=== PATIENT | male | born 1950 | race African-American/Black ===

== ENCOUNTER 2016-04-11 12:57 | Inpatient (IN) | payer OTHER ==
[~2016-04-11] VITALS: Ht 175.3 cm; Wt 98.1 kg
[~2016-04-11 12:57] MED LIST: ACET-654 PO; ACET65TA; ASPI-85 PO; ASPI81CH PO; ASPI81TA63; BABY81CH; BYDU1INJ SC; CALCCHW12; CITR1SOL PO; DULC10SU2 PR; FISH300C2; GLUC1000; GLYB5TA PO; INSULANT SC; LANTINJ4 SC; LISI-542 PO; LISI5TAB; METF1000 PO; MILKSUS PO; MIRA33504 PO; OXYC10TA56; PERC5TAB8; PERC7.5T8; PERCOCET PO; SIMV20TA2 PO; SITAGLIPTIN; VITA250C; ZINC220T2; [UNRECOGNIZED DRUG - OTHER]
[2016-04-11] MEDS ORDERED: PLAV75TA38 PO (13:58)
[2016-04-11] MEDS ORDERED: ASPI81TA13 PO (13:58)
[2016-04-11] MEDS ORDERED: INSULANT SC (13:58)
[2016-04-11] MEDS ORDERED: VOLT1GEL24 TOP (13:58)
[2016-04-11] MEDS ORDERED: JANU50TA8 PO (13:58)
[2016-04-11] MEDS ORDERED: SIMV20TA2 PO (13:58)
[2016-04-11] MEDS ORDERED: DULC5TAB PO (13:58)
[2016-04-11 14:19] LABS: MEAN CORPUSCULAR HEMOGLOBIN 28.2 pg (27.0-33.0); MEAN CORPUSCULAR HGB CONC 32.3 g/dl (32.0-36.5); MEAN CORPUSCULAR VOLUME 87.3 fl (80.0-96.0); RED CELL DISTRIBUTION WIDTH 14.4 % (11.5-14.5); WHITE BLOOD COUNT 7.2 K/mm3 (4.0-10.0)
[2016-04-11 14:36] LABS: ANION GAP 9 MEQ/L (8-16); BLOOD UREA NITROGEN 18 MG/DL (7-18); CALCIUM LEVEL 8.5 MG/DL (8.8-10.2); CARBON DIOXIDE LEVEL 25 MEQ/L (21-32); CHLORIDE LEVEL 113 MEQ/L (98-107); CREATININE FOR GFR 1.18 MG/DL (0.70-1.30); GLOMERULAR FILTRATION RATE > 60.0 (>49); GLUCOSE, FASTING 133 MG/DL (80-110); POTASSIUM SERUM 4.4 MEQ/L (3.5-5.1); SODIUM LEVEL 147 MEQ/L (136-145)
--- NOTE | 2016-04-11 14:40 | REP ---
PORTABLE CHEST X-RAY: Sitting AP view. HISTORY: TIA. Comparison chest x-ray August 06, 2015. FINDINGS: The lungs are symmetrically aerated and clear. The pleural angles are sharp. Heart is not felt to be enlarged. The aorta is somewhat tortuous. There are degenerative changes in the thoracic spine and in the acromioclavicular joints. Pulmonary vasculature is not increased. IMPRESSION: No active disease. Signed by Simon Peters MD 04/11/2016 03:01 P
[2016-04-11] MEDS ORDERED: ONDANSETRON 4MG/2ML VIAL (J2405) IV PRN (15:00)
[2016-04-11] MEDS ORDERED: DEXTROSE 50% 50 ML SYRINGE IV PRN (15:00)
[2016-04-11] MEDS ORDERED: GLUCOSE 4 GM CHEW TABLET PO PRN (15:00)
[2016-04-11] MEDS ORDERED: MIRALAX *UNIT DOSE* 17GM PACKET PO PRN (15:00)
[2016-04-11] MEDS ORDERED: GLUCAGON FOR INJ 1 MG VIAL (J1610) SC PRN (15:00)
[2016-04-11] MEDS ORDERED: BISACODYL 5 MG TAB PO PRN (15:00)
[2016-04-11 16:06] LABS: ERYTHROCYTE SEDIMENTATION RATE 11 mm/hr (0-20)
[2016-04-11 16:15] LABS: SICKLE CELL SCREEN POSITIVE (NEGATIVE)
--- NOTE | 2016-04-11 16:30 | REP ---
MRA BRAIN WITHOUT CONTRAST: HISTORY: TIA's 3D [id number] MR angiography was performed at the level of the [place]. There is no aneurysm or arteriovenous malformation. Mild atherosclerotic disease involves the horizontal petrous segments and cavernous and supraclinoid internal carotid arteries , A1 segment of the right anterior cerebral artery, left middle cerebral artery trifurcation and basilar artery. The P1 segments of the posterior cerebral arteries are hypoplastic. The major intracranial vessels are patent. The vertebral arteries are equal in size. IMPRESSION: 1. There is no aneurysm or arteriovenous malformation. 2. Atherosclerotic disease as described above. Signed by Mendel Sanchez MD 04/11/2016 04:56 P
--- NOTE | 2016-04-11 16:32 | HPE ---
DATE OF ADMISSION: 04/11/2016 PRIMARY CARE PROVIDER: Dr. Fofana NEUROLOGIST: Dr. Fountain AGILE JAVA DEVELOPER: Dr. Anderson HISTORY OF PRESENT ILLNESS: The patient is a 65-year-old male who was actually seen and admitted here at [facility] on 01/14/2016 through 01/16/2016. At that time, he was diagnosed with amaurosis fugax and did have a fairly thorough workup, including carotid duplex, carotid MRI, MRI of the brain, and transthoracic echocardiogram, which did not reveal any significant etiology for his amaurosis fugax. He was also diagnosed with poorly controlled insulin dependent diabetes. The patient was discharged with close followup with Dr. 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 His symptoms have reportedly been getting worse. He had been following with Dr. Fountain, who did give him a trial of treatment for possible complex migraine, which did not help his symptoms. Dr. Fountain did see the patient today and the patient did have an episode of loss of vision of the left eye yesterday while exerting himself and also this morning for about 10 minutes at approximately 8:30 this morning with a slow resolution of symptoms. He does state that it is happening at increased frequency. As such, Dr. Fountain was concerned for impending CVA and referred the patient to the emergency room for transesophageal echocardiogram and ophthalmology evaluation. SUBJECTIVE: At this time, the patient denies any current symptoms. Denies any chest pain, shortness of breath, lightheadedness, dizziness, nausea, vomiting, or diarrhea. PAST MEDICAL HISTORY: 1. Poorly controlled diabetes. 2. Hypertension. 3. Amaurosis fugax diagnosed within the last several months. 4. Pancreatitis. HOME MEDICATIONS: - aspirin 81 mg daily - Janumet mg twice a day - Lantus 20 units in the morning - Lisinopril 5 mg daily - MiraLAX 17 gram packet daily - Dulcolax 5 mg as needed for constipation - Plavix 75 mg daily ALLERGIES: The patient has no known drug allergies. PAST SURGICAL HISTORY: 1. Cholecystectomy. 2. Knee arthroplasty on the right. SOCIAL HISTORY: The patient is a former smoker. He lives with his . Rarely drinks alcohol. 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 His father on Sunday and he is eager to go and see him, but has not left as he wishes to have this issue resolved first. FAMILY HISTORY: Mother with pancreatic and colon cancer, at age 67. REVIEW OF SYSTEMS: Negative other than history of present illness. PHYSICAL EXAMINATION: VITAL SIGNS: Blood pressure 137/83, pulse 96, respiratory rate 18, temperature 97.3, oxygen saturation 98% on room air. GENERAL: He is a very pleasant, -Prydeinig male, lying on the stretcher at a 30-degree angle. He does not appear to be in any acute distress whatsoever. HEENT: Cranial nerves II through XII grossly intact. He has moist mucous membranes. No elevation in central venous pressure. CARDIOVASCULAR EXAM: S1, S2 regular. RESPIRATORY EXAM: Clear. ABDOMINAL EXAMINATION: Obese. EXTREMITIES: No clubbing, cyanosis or edema. NEUROLOGIC EXAM: Nonfocal. LABORATORY DATA: WBC 7.2, hemoglobin 12.6, hematocrit 38.9, platelet count 189. Chemistry panel: Sodium 147, potassium 4.4, chloride 113, bicarbonate 25, BUN 18, creatinine 1.1. Hemoglobin A1/c is 8.3, which is markedly improved from December where it was 11.5. The patient did have a chest x-ray, which reveals no active disease. ASSESSMENT AND PLAN: This is a 65-year-old man who was sent back to the emergency room for amaurosis fugax. 1. Amaurosis fugax. I did speak with Dr. Fountain of neurology, who suggested obtaining a transesophageal echocardiogram and ophthalmology evaluation. I did speak with Dr. Blanco, who suggested repeating the MRI, MRA and carotid duplex, as well as checking sickle cell screen and complete blood count (CBC). These tests have been ordered. He did assure me that he will see the patient in consultation. I did speak with him twice this afternoon. I have reached out to Dr. Wren to see the patient in consultation from a neurology service, as well as Dr. Justin, who could hopefully complete a transesophageal echocardiogram as early as tomorrow, place the patient nothing by mouth tomorrow morning in case this is an option. For the time being, we will continue with aspirin and Plavix and statin. 2. Hypertension. The patient is on Lisinopril. 3. Insulin-dependent diabetes. We will place the patient on sliding scale and I will hold his Lantus 20 in the morning given that we will be pursuing a transesophageal echocardiogram tomorrow. 4. Constipation. Continue with his home regimen. DISPOSITION: The patient is being admitted to the progressive care unit (PCU) for telemetry monitoring. We will recheck an EKG to ensure that he has not had any paroxysmal atrial fibrillation. He will be admitted to Dr. Bhardwaj's service, who will continue following the patient tomorrow at 7:00 a.m.
--- NOTE | 2016-04-11 16:35 | REP ---
MR BRAIN WITHOUT CONTRAST: HISTORY: TIA's. COMPARISON: 01/15/2016 Areas of increased signal intensity on T2 weighted images are present in the periventricular and subcortical white matter. This represents small vessel ischemic disease. There is no intraparenchymal hemorrhage, infarct, mass or midline shift. The ventricular system and cortical sulci are dilated consistent with mild volume loss. There is no extracerebral collection. Mucosal thickening is present in the sinuses. IMPRESSION:1. Small vessel ischemic disease. 3. Mild volume loss. Signed by Mendel Sanchez MD 04/11/2016 04:57 P
--- NOTE | 2016-04-11 16:59 | REP ---
Duplex carotid sonography: History: TIA. Comparison study is from 01/14/2016. Findings: Antegrade flow is observed in both vertebral arteries. Right carotid: The right common carotid artery shows mild diffuse intimal thickening. There is mild mixed plaquing in the bulb on the right side. Color flow and spectral Doppler interrogation remain unremarkable on the right. Right CCA/PSV 100 cm/S Right ICA/PSV 62 EDV 10 Right ECA/PSV 67 Right ICA/CCA ratio normal 0.6. Impression: 0-15% category narrowing in the right ICA. Doppler velocities have not increased since prior study. Left carotid: The left common carotid artery shows mild diffuse intimal thickening. There is minimal soft plaquing in the left carotid bulb on two-dimensional scanning. Color flow and spectral Doppler interrogation remain unremarkable. Left CCA/PSV 98 cm/S Left ICA/PSV 65 EDV 10 Left ECA/PSV 77 Left ICA/CCA ratio normal 0.7. Impression: 0-15% category narrowing in the left ICA by Doppler velocity criteria. Doppler velocities have not increased significantly since the prior exam. Signed by Simon Peters MD 04/11/2016 05:02 P
[2016-04-11] MEDS: HumaLOG INSULIN (NovoLOG) PER UNIT SC SCH ×2 (17:30→23:02)
[2016-04-11] MEDS ORDERED: HumuLIN R (REGULAR) INSULIN (NovoLIN R) **100U/ML** PER UNIT As Ordered ONE (17:41)
--- NOTE | 2016-04-11 20:27 | ECGEPIP ---
Stationary ECG Study [facility] - ED Test Date: 2016-04-11 Pat Name: SONYA YBARRA Department: Room: - Gender: M [employer]bmethod[employer] Architect: cammy : 1950 Requested By: Sancho Mohan Order Number: [id number] Reading MD: Becky Young Measurements Intervals [place] Rate: 83 P: 63 WV: 160 QRS: 0 QRSD: 90 T: 44 QT: 346 QTc: 408 Interpretive Statements SINUS RHYTHM WITH SINUS ARRHYTHMIA POSSIBLE RIGHT VENTRICULAR CONDUCTION DELAY NSTTW ABNORMALITY SIMILAR 01/15/16 Electronically Signed On 04-11-2016 20:27:34 EST by Becky Young
[2016-04-11] MEDS: HEPARIN SOD (PORCINE) 5000 UNITS/ML VIAL SC SCH (22:10)
[2016-04-11 22:22] VITALS: BP 133/76
[2016-04-11] MEDS ORDERED: HEPARIN SOD (PORCINE) 5000 UNITS/ML VIAL As Ordered ONE (23:42)
[2016-04-12] VITALS (13 sets, daily range): BP systolic 103–136; BP diastolic 52–80
[2016-04-12] MEDS: CEPACOL LOZENGE PO PRN ×3 (00:17→09:00)
[2016-04-12] MEDS: HEPARIN SOD (PORCINE) 5000 UNITS/ML VIAL SC SCH ×4 (00:17→21:14)
[2016-04-12] MEDS ORDERED: HEPARIN SOD (PORCINE) 5000 UNITS/ML VIAL As Ordered ONE (06:28)
[2016-04-12] MEDS: HumaLOG INSULIN (NovoLOG) PER UNIT SC SCH ×5 (07:30→21:15)
[2016-04-12] MEDS ORDERED: glyBURIDE 5 MG TAB PO SCH (07:30)
[2016-04-12 07:39] LABS: MEAN CORPUSCULAR HEMOGLOBIN 29.5 pg (27.0-33.0); MEAN CORPUSCULAR HGB CONC 34.4 g/dl (32.0-36.5); MEAN CORPUSCULAR VOLUME 85.6 fl (80.0-96.0); RED CELL DISTRIBUTION WIDTH 13.3 % (11.5-14.5); WHITE BLOOD COUNT 5.1 K/mm3 (4.0-10.0)
[2016-04-12 08:14] LABS: ANION GAP 7 MEQ/L (8-16); BLOOD UREA NITROGEN 15 MG/DL (7-18); CALCIUM LEVEL 8.5 MG/DL (8.8-10.2); CARBON DIOXIDE LEVEL 24 MEQ/L (21-32); CHLORIDE LEVEL 112 MEQ/L (98-107); GLOMERULAR FILTRATION RATE > 60.0 (>49); GLUCOSE, FASTING 100 MG/DL (80-110); POTASSIUM SERUM 4.2 MEQ/L (3.5-5.1); SODIUM LEVEL 143 MEQ/L (136-145)
[2016-04-12] MEDS ORDERED: LEVEMIR (INSULIN DETEMIR) 1 UNITS/0.01ML SC SCH (09:00)
[2016-04-12] MEDS ORDERED: CLOPIDOGREL 75 MG TAB PO SCH (09:00)
[2016-04-12] MEDS ORDERED: SIMVASTATIN 20 MG TAB PO SCH (09:00)
[2016-04-12] MEDS: LISINOPRIL 5 MG TAB PO SCH (09:00)
[2016-04-12] MEDS ORDERED: ASPIRIN 81 MG ENTERIC TAB PO SCH (09:00)
--- NOTE | 2016-04-12 09:30 | IPNPDOC ---
Assessment/Plan Date Seen The patient was seen on 04/12/16. Problems Problems: (1) Amaurosis fugax of left eye Status: Acute Problem Text: seen by Dr Blanco. continue work up for embolic phenomenon. (2) TIA (transient ischemic attack) Status: Acute Problem Text: MRI and MRA negative awaiting YVON. carotid US no significant obstruction. (3) Diabetes Status: Chronic Problem Text: continue insulin and glyburide when diet is started. (4) Hyperlipidemia Status: Chronic Problem Text: continue statin Plan / VTE VTE Prophylaxis Ordered?: Yes Subjective Review of Systems CC/HPI The patient is a 65-year-old male admitted with a reason for visit of Transient Ischemic Attack. Events since last encounter no new complaints overnight. Objective Physical Examination General Exam: Positive: Alert, No Acute Distress Eye Exam: Positive: Conjunctiva & lids normal, EOMI ENT Exam: Positive: Atraumatic, Mucous membr. moist/pink, Pharynx Normal Neck Exam: Positive: Supple, Negative: JVD, thyromegaly Chest Exam: Positive: Clear to auscultation, Normal air movement Heart Exam: Positive: Normal S1, Normal S2, Rate Normal, Regular Rhythm, Negative: Murmurs, Rubs Telemetry: Positive: No significant arrhythmia Abdomen Exam: Positive: Normal bowel sounds, Soft, Negative: Hepatospenomegaly, Tenderness Extremity Exam: Positive: Normal pulses, Negative: Clubbing, Cyanosis, Edema Vital Signs/I&O Vital Signs Date Time Temp Pulse Resp B/P Pulse Ox O2 Delivery O2 Flow Rate FiO2 04/12/16 09:00 119/79 04/12/16 04:00 97.0 81 16 93 04/12/16 04:00 Room Air I&O- Last 24 Hours up to 6 AM 04/12/16 06:00 Intake Total 0 ml Output Total 0 ml Balance 0 ml Laboratory Data Labs 24H Laboratory Tests 2 04/11/16 14:03: Anion Gap 9, Blood Urea Nitrogen 18, Creatinine 1.18, Sodium Level 147H, Potassium Level 4.4, Chloride Level 113H, Carbon Dioxide Level 25, Calcium Level 8.5L, Estimated Mean Plasma Glucose 192H, Glomerular Filtration Rate > 60.0, Hemoglobin A1c 8.3H 04/11/16 15:15: Erythrocyte Sedimentation Rate 11, Prothromb Time International Ratio 1.00, Prothrombin Time 13.3, Sickle Cell Screen POSITIVE, Thyroid Stimulating Hormone (TSH) 0.676 04/11/16 16:57: Bedside Glucose (Misc Panel) 168H 04/11/16 22:55: Bedside Glucose (Misc Panel) 152H 04/12/16 07:24: Anion Gap 7L, Blood Urea Nitrogen 15, Creatinine 0.90, Sodium Level 143, Potassium Level 4.2, Chloride Level 112H, Carbon Dioxide Level 24, Calcium Level 8.5L, Glomerular Filtration Rate > 60.0 CBC/BMP Laboratory Tests 04/11/16 14:03 Calcium Level 8.5 L, Red Blood Count 4.45, Mean Corpuscular Volume 87.3, Mean Corpuscular Hemoglobin 28.2, Mean Corpuscular Hemoglobin Concent 32.3, Red Cell Distribution Width 14.4 04/12/16 07:24 Calcium Level 8.5 L, Red Blood Count 4.19 L, Mean Corpuscular Volume 85.6, Mean Corpuscular Hemoglobin 29.5, Mean Corpuscular Hemoglobin Concent 34.4, Red Cell Distribution Width 13.3 FSBS Laboratory Tests Test 04/11/16 16:57 04/11/16 22:55 Range/Units Bedside Glucose (Misc Panel) 168 152 80-115 MG/DL SKIP PACK MD Apr 12, 2016 09:30
[2016-04-12] MEDS ORDERED: MIDAZOLAM INJ 2 MG/2 ML VIAL (J2250) As Ordered ONE ×2 (14:33→14:34)
[2016-04-12] MEDS ORDERED: fentaNYL 100 MCG/2 ML INJECTION (J3010) As Ordered ONE (14:34)
[2016-04-12] MEDS ORDERED: LIDOCAINE VISCOUS 2% SOLN 15ML UDC As Ordered ONE (14:35)
[2016-04-12] MEDS ORDERED: MIDAZOLAM INJ 2 MG/2 ML VIAL (J2250) IV ONE (15:05)
[2016-04-12] MEDS ORDERED: fentaNYL 100 MCG/2 ML INJECTION (J3010) IV ONE (15:05)
--- NOTE | 2016-04-12 16:16 | EDDOCDS ---
Nurse's Notes [facility] Name: Sonya Mccann Age: 65 yrs Sex: Male : 1950 Arrival Date: 04/11/2016 Time: 12:57 Bed Admit Hold Private MD: Cass Fountain MD Diagnosis: Amaurosis fugax;Type 2 diabetes mellitus Presentation: 04/11 13:00 Presenting complaint: Patient states: loosing site in left eye since December. Reports kr3 needs test to rule out TIA. Reports multiple episodes of sight loss with multiple admissions for same, most recent mid February. Reports vision normal at this time. Adult Sepsis Screening: The patient does not have new or worsening altered mentation. Patient's respiratory rate is less than 22. Systolic blood pressure is greater than 100. Patient has a qSOFA score of 0- Negative Sepsis Screen. Suicide/Homicide risk assessment- the patient denies having any suicidal and/or homicidal ideations and does not present with any other emotional, behavioral or mental health complaints. 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 Transition of care: patient was received from Dr Odell. 13:00 Method Of Arrival: Walkin/Carried/Asstd kr3 13:00 Acuity: JAQUAN Level 3 kr3 Triage Assessment: 13:06 General: Appears in no apparent distress, comfortable, Behavior is appropriate for age, kr3 cooperative. Pain: Denies pain. HIV screening NA for this visit Offered previously. Neurological: Level of Consciousness is awake, alert, Manager [employer] are equal bilaterally Moves all extremities. Gait is steady, Speech is normal. EENT: Reports intermittent vision disturbance left eye. Respiratory: Respiratory effort is even, unlabored. Derm: Skin is normal. Historical: - Allergies: no known allergies; - Home Meds: 1. aspirin 81 mg Oral tab 1 tab once daily 2. Janumet XR 50-1,000 mg oral tab twice a day 3. Lantus 100 unit/mL Sub-Q soln 20 unit 4. lisinopril 5 mg Oral tab 1 tab once daily 5. Miralax 17 gram/dose Oral powd 17 g once daily 6. Dulcolax (bisacodyl) 5 mg Oral TbEC 1 tab as needed 7. Plavix 75 mg Oral tab 1 tab once daily - PMHx: Diabetes - IDDM: uncontrolled; Pancreatitis; - PSHx: Cholecystectomy; Knee Arthroplasty, Right; Knee surgery- Left; - The history from nurses notes was reviewed: and I agree with what is documented. - Social history: Smoking status: Patient states former smoker of tobacco. No barriers to communication noted, The patient speaks fluent Nigerien. - : The pt / caregiver states he / she is on anticoagulants: Plavix. Home medication list is obtained from the patient. - Exposure Risk Screening:: None identified. - Immunization history:: All immunizations up-to-date. - Family history: Not pertinent. - Social history:: the patient is a non-smoker, the patient does not drink alcohol. Screenin:44 Screening information is obtained from the patient. Fall risk: No risks identified. mlb1 Assistance ADL's: requires no assistance with activities of daily living. Abuse/DV Screen: The patient / caregiver reports he/she is: not in a situation that causes fear, pain or injury. Nutritional screening: No deficits noted. Advance Directives: Currently, there is no health care proxy. home support is adequate. Assessment: 13:37 General: Appears in no apparent distress, comfortable, Behavior is appropriate for age, mlb1 cooperative. Pain: Denies pain. Neurological: Level of Consciousness is awake, alert, Oriented to person, place, time, Moves all extremities. Full function Speech is normal, Facial symmetry appears normal, Facial symmetry: tongue is midline. 14:14 General: Appears in no apparent distress, comfortable, Behavior is appropriate for age, mlb1 cooperative. Pain: Denies pain. 15:11 General: Appears in no apparent distress, comfortable, Behavior is appropriate for age, mlb1 cooperative. Pain: Denies pain. Neurological: No deficits noted. Respiratory: No deficits noted. 17:11 General: Appears in no apparent distress, comfortable, Behavior is appropriate for age, mlb1 cooperative. Pain: Denies pain. Neurological: No deficits noted. Respiratory: No deficits noted. 18:43 General: Appears in no apparent distress, comfortable, Behavior is appropriate for age, mlb1 cooperative. Pain: Denies pain. Neurological: No deficits noted. Respiratory: No deficits noted. 19:03 General: Verbal report given by Trace Cueva RN. Assumed care of patient at this time.. kas2 19:21 General: Appears in no apparent distress, comfortable, well nourished, well groomed, kas2 Behavior is appropriate for age, cooperative. Pain: Denies pain. Neurological: Level of Consciousness is awake, alert, Oriented to person, place, time. Cardiovascular: Capillary refill < 3 seconds Heart tones S1 S2 present Rhythm is sinus rhythm No ectopy. Respiratory: No deficits noted. Airway is patent Respiratory effort is even, unlabored, Respiratory pattern is regular, symmetrical, Breath sounds are clear bilaterally. Derm: Skin is intact, Skin is dry, Skin is pink, warm & dry. Skin temperature is warm. 20:05 General: Patient resting in bed watching TV. Denies pain or discomfort at this time. kas2 Appears comfortable. No apparent distress. Airway patent and respiratory effort even and unlabored. Call jimenez within reach. Will continue to monitor.. 20:35 General: Verbal report given to Bainca Larios RN.. kas2 22:02 General: Patient with complaint of sore throat. "I feel like I am getting a sore throat cf2 from being down in the ER with all these sick people". No abnormalities noted in throat. Spoke with Dr Bingham and he is going to order lozenger for patient. Vital Signs: 12:59 BP 137 / 83; Pulse 96; Resp 18 S; Temp 97.3(O); Pulse Ox 98% on R/A; Weight 85.28 kg dd6 (R); Height 5 ft. 9 in. (175.26 cm) (R); 13:57 BP 118 / 76 (auto/); kas2 13:59 Pulse 94 MON; Pulse Ox 97% ; kas2 13:59 Resp 20; Temp 98.2(O); kas2 14:12 BP 113 / 68 (auto/); kas2 14:12 Pulse 82 MON; Pulse Ox 100% ; kas2 14:27 BP 124 / 75 (auto/); kas2 14:27 Pulse 106 MON; Pulse Ox 100% ; kas2 14:42 BP 125 / 70 (auto/); kas2 14:42 Pulse 102 MON; Pulse Ox 97% ; kas2 14:57 BP 120 / 68 (auto/); kas2 14:57 Pulse 78 MON; Pulse Ox 97% ; kas2 15:12 BP 124 / 77 (auto/); kas2 15:12 Pulse 86 MON; Pulse Ox 96% ; kas2 16:34 BP 116 / 74 (auto/); kas2 16:35 Pulse 98 MON; Pulse Ox 97% ; kas2 16:49 BP 115 / 70 (auto/); kas2 16:49 Pulse 98 MON; Pulse Ox 97% ; kas2 17:04 BP 117 / 72 (auto/); kas2 17:04 Pulse 100 MON; Pulse Ox 98% ; kas2 17:19 BP 108 / 70 (auto/); kas2 17:19 Pulse 98 MON; Pulse Ox 97% ; kas2 17:34 BP 129 / 74 (auto/); kas2 17:34 Pulse 94 MON; kas2 17:49 BP 113 / 77 (auto/); kas2 17:49 Pulse 98 MON; kas2 18:04 BP 152 / 81 (auto/); kas2 18:04 Pulse 100 MON; Pulse Ox 98% ; kas2 18:19 BP 144 / 74 (auto/); kas2 18:19 Pulse 90 MON; Pulse Ox 97% ; kas2 18:49 BP 97 / 55 (auto/); kas2 18:49 Pulse 92 MON; Pulse Ox 96% ; kas2 19:04 BP 125 / 75 (auto/); kas2 19:04 Pulse 100 MON; Pulse Ox 98% ; kas2 19:19 BP 113 / 57 (auto/); kas2 19:19 Pulse 98 MON; Pulse Ox 96% ; kas2 20:45 Resp 20; Temp 98.8; kas2 12:59 Body Mass Index 27.76 (85.28 kg, 175.26 cm) dd6 Vitals: 12:59 Log In Time: April 11, 2016 at 12:57. dd6 ED Course: 12:58 Patient visited by Nba Hooks PCA. dd6 12:58 Patient moved to Waiting dd6 12:59 Cass Fountain is Private Physician. dd6 12:59 Patient moved to Pre RCE dd6 13:04 Triage Initiated kr3 13:25 Patient moved to 11 kr3 13:34 Sancho Lugo MD is Attending Physician. pc 13:38 Patient visited by Ashish Lowery, KENY. mlb1 13:43 Patient visited by Sancho Lugo MD. pc 13:57 EKG done. (by ED staff). Reviewed by Sancho Lugo MD. dem1 13:59 Patient visited by Donovan Johnson. dem1 13:59 monitor and storage bin tender on. Pulse ox on. NIBP on. dem1 14:10 A1C Sent. mb9 14:19 Josh Desai under water assistant. nq 14:39 Patient visited by Donovan Johnson. dem1 14:39 Diet: Patient given regular meal. dem1 14:40 Josh Desai is Hospitalizing Provider. pc 15:01 Chest, 1 View Returned. EDMS 15:11 Patient visited by Ashish Lowery, KENY. mlb1 15:17 Patient moved to Ultrasound br3 15:21 Patient moved to 11 br3 15:24 Patient moved to MRI mlb1 15:36 [facility] Payment Agreement was scanned into [employer] and attached to record. jp5 16:31 Patient moved to Admit Hold tmm1 16:44 MRA BRAIN W/O CONTRAST Returned. EDMS 16:44 MRI Brain without Contrast Returned. EDMS 17:11 Patient visited by Ashish Lowery, KENY. mlb1 17:36 Duplex,carotid (complete) Returned. EDMS 18:44 No IV's were initiated during this patient's visit. No procedures done that require mlb1 assistance. 18:45 Patient visited by Ashish Lowery, KENY. mlb1 19:03 Nallely Vasquez RN is Primary Nurse. kas2 19:04 Patient visited by Edson Verma PCA. kb5 19:04 Patient visited by Nallely Vasquez RN. kas2 19:25 Patient visited by Nallely Vasquez RN. kas2 20:45 Patient visited by Nallely Vasquez RN. kas2 21:05 Patient moved to 15 jmv 21:06 Patient moved to Admit Hold sls1 21:17 EKG-ADULT Returned. EDMS 21:47 Primary Nurse role handed off by Nallely Vasquez RN cf2 21:47 Bianca Moore,KENY is Primary Nurse. cf2 21:47 Patient visited by Bianca Moore RN. cf2 22:02 Patient visited by Bianca Moore,KENY. cf2 22:18 Patient visited by Nallely Vasquez RN. kas2 22:18 Inserted saline lock: 20 gauge in right forearm The patient tolerated the procedure kas2 well. 22:38 Patient visited by Bianca Moore,KENY. cf2 22:39 The patient / caregiver is instructed regarding the plan of care and ED course. Patient cf2 has correct armband on for positive identification. Placed in gown. Bed in low position. Call light in reach. Side rails up X 1. Side rails up X2. Care assumed by holding Nurse. Please see paper chart forms. Report is given to nallely. Property :Personal belongings accompany Pt. Administered Medications: 17:44 Drug: Insulin Regular Human 4 units [insulin regular human 100 unit/mL injection mlb1 solution (0.04 mL)] {Co-Signature: ck1 (Paula Palmer RN).} Route: Sub-Q; Site: left upper arm; Point of Care Testing: Blood Glucose: 16:58 Blood Glucose: 168 mg/dL; mlb1 Ranges: Order Results: Lab Order: CBC; SPEC'M 04/11/16 14:03 Test: WHITE BLOOD COUNT; Value: 7.2; Range: 4.0-10.0; Units: K/mm3; Status: F Test: RED BLOOD COUNT; Value: 4.45; Range: 4.30-6.10; Units: M/mm3; Status: F Test: HEMOGLOBIN; Value: 12.6; Range: 14.0-18.0; Abnormal: Below low normal; Units: g/dl; Status: F Test: HEMATOCRIT; Value: 38.9; Range: 42.0-52.0; Abnormal: Below low normal; Units: %; Status: F Test: MEAN CORPUSCULAR VOLUME; Value: 87.3; Range: 80.0-96.0; Units: fl; Status: F Test: MEAN CORPUSCULAR HEMOGLOBIN; Value: 28.2; Range: 27.0-33.0; Units: pg; Status: F Test: MEAN CORPUSCULAR HGB CONC; Value: 32.3; Range: 32.0-36.5; Units: g/dl; Status: F Test: RED CELL DISTRIBUTION WIDTH; Value: 14.4; Range: 11.5-14.5; Units: %; Status: F Test: PLATELET COUNT, AUTOMATED; Value: 189; Range: 150-450; Units: k/mm3; Status: F Lab Order: MED Profile; SPEC'M 04/11/16 14:03 Test: GLUCOSE, FASTING; Value: 133; Range: 80-110; Abnormal: Above high normal; Units: MG/DL; Status: F Test: BLOOD UREA NITROGEN; Value: 18; Range: 7-18; Units: MG/DL; Status: F Test: CREATININE FOR GFR; Value: 1.18; Range: 0.70-1.30; Units: MG/DL; Status: F Test: GLOMERULAR FILTRATION RATE; Value: > 60.0; Range: >49; Status: F Test: SODIUM LEVEL; Value: 147; Range: 136-145; Abnormal: Above high normal; Units: MEQ/L; Status: F Test: POTASSIUM SERUM; Value: 4.4; Range: 3.5-5.1; Units: MEQ/L; Status: F Test: CHLORIDE LEVEL; Value: 113; Range: 98-107; Abnormal: Above high normal; Units: MEQ/L; Status: F Test: CARBON DIOXIDE LEVEL; Value: 25; Range: 21-32; Units: MEQ/L; Status: F Test: ANION GAP; Value: 9; Range: 8-16; Units: MEQ/L; Status: F Test: CALCIUM LEVEL; Value: 8.5; Range: 8.8-10.2; Abnormal: Below low normal; Units: MG/DL; Status: F Test Note: ; Units are mL/min/1.73 m2 Chronic Kidney Disease Staging per NKF: Stage I & II GFR >=60 Normal to Mildly Decreased Stage III GFR 30-59 Moderately Decreased Stage IV GFR 15-29 Severely Decreased Stage V GFR <15 Very Little GFR Left ESRD GFR <15 on PASSENGER SERVICE SUPERVISOR Lab Order: A1C; SPEC'M 04/11/16 14:03 Test: HEMOGLOBIN A1c; Value: 8.3; Range: 4.5-6.2; Abnormal: Above high normal; Units: %; Status: F Test: ESTIMATED AVERAGE GLUCOSE; Value: 192; Range: 60-110; Abnormal: Above high normal; Units: MG/DL; Status: F Lab Order: PROTHROMBIN TIME PROFILE\\E\\INR; SPEC'M 04/11/16 15:15 Test: PROTHROMBIN TIME; Value: 13.3; Range: 12.3-14.5; Units: SECONDS; Status: F Test: INR; Value: 1.00; Status: F Test Note: ; THERAPUTIC HUMAN INR VALUES INDICATIONS NORMAL RANGES PROPHYLAXIS/TREATMENT OF: VENOUS THROMBOSIS 2.0-3.0 PULMONARY EMBOLISM 2.0-3.0 PREVENTION OF SYSTEMIC EMBOLISM FROM: TISSUE HEART VALVES 2.0-3.0 ACUTE MYOCARDIAL INFARCTION 2.0-3.0 VALVULAR HEART DISEASE 2.0-3.0 ATRIAL FIBRILLATION 2.0-3.0 MECHANICAL VALVES(HIGH RISK) 2.5-3.5 RECURRENT MYOCARDIAL INFARCTION 2.5-3.5 Lab Order: SICKLE CELL SCREEN; [facility] 04/11/16 15:15 Test: SICKLE CELL SCREEN; Value: POSITIVE; Range: NEGATIVE; Status: F Test Note: ; WE SUGGEST ORDERING QUANTITATIVE HEMOGLOBIN ELECTROPHORESIS. Lab Order: ERYTHROCYTE SEDIMENTATION RATE; [facility] 04/11/16 15:15 Test: ERYTHROCYTE SEDIMENTATION RATE; Value: 11; Range: 0-20; Units: mm/hr; Status: F Lab Order: THYROID STIMULATING HORMONE; [facility] 04/11/16 15:15 Test: THYROID STIMULATING HORMONE; Value: 0.676; Range: 0.358-3.740; Units: uIU/ML; Status: F Lab Order: Fingerstick Blood Sugar; [facility] 04/11/16 16:57 Test: BEDSIDE GLUCOSE; Value: 168; Range: 80-115; Abnormal: Above high normal; Units: MG/DL; Status: F Lab Order: BASIC METABOLIC PROFILE; [facility] 04/12/16 07:24 Test: GLUCOSE, FASTING; Value: 100; Range: 80-110; Units: MG/DL; Status: F Test: BLOOD UREA NITROGEN; Value: 15; Range: 7-18; Units: MG/DL; Status: F Test: CREATININE FOR GFR; Value: 0.90; Range: 0.70-1.30; Units: MG/DL; Status: F Test: GLOMERULAR FILTRATION RATE; Value: > 60.0; Range: >49; Status: F Test: SODIUM LEVEL; Value: 143; Range: 136-145; Units: MEQ/L; Status: F Test: POTASSIUM SERUM; Value: 4.2; Range: 3.5-5.1; Units: MEQ/L; Status: F Test: CHLORIDE LEVEL; Value: 112; Range: 98-107; Abnormal: Above high normal; Units: MEQ/L; Status: F Test: CARBON DIOXIDE LEVEL; Value: 24; Range: 21-32; Units: MEQ/L; Status: F Test: ANION GAP; Value: 7; Range: 8-16; Abnormal: Below low normal; Units: MEQ/L; Status: F Test: CALCIUM LEVEL; Value: 8.5; Range: 8.8-10.2; Abnormal: Below low normal; Units: MG/DL; Status: F Test Note: ; Units are mL/min/1.73 m2 Chronic Kidney Disease Staging per NKF: Stage I & II GFR >=60 Normal to Mildly Decreased Stage III GFR 30-59 Moderately Decreased Stage IV GFR 15-29 Severely Decreased Stage V GFR <15 Very Little GFR Left ESRD GFR <15 on PASSENGER SERVICE SUPERVISOR Lab Order: COMPLETE BLOOD COUNT; SPEC'M 04/12/16 07:24 Test: WHITE BLOOD COUNT; Value: 5.1; Range: 4.0-10.0; Units: K/mm3; Status: F Test: RED BLOOD COUNT; Value: 4.19; Range: 4.30-6.10; Abnormal: Below low normal; Units: M/mm3; Status: F Test: HEMOGLOBIN; Value: 12.4; Range: 14.0-18.0; Abnormal: Below low normal; Units: g/dl; Status: F Test: HEMATOCRIT; Value: 35.9; Range: 42.0-52.0; Abnormal: Below low normal; Units: %; Status: F Test: MEAN CORPUSCULAR VOLUME; Value: 85.6; Range: 80.0-96.0; Units: fl; Status: F Test: MEAN CORPUSCULAR HEMOGLOBIN; Value: 29.5; Range: 27.0-33.0; Units: pg; Status: F Test: MEAN CORPUSCULAR HGB CONC; Value: 34.4; Range: 32.0-36.5; Units: g/dl; Status: F Test: RED CELL DISTRIBUTION WIDTH; Value: 13.3; Range: 11.5-14.5; Units: %; Status: F Test: PLATELET COUNT, AUTOMATED; Value: 171; Range: 150-450; Units: k/mm3; Status: F Lab Order: Fingerstick Blood Sugar; SPEC'04/11/16 22:55 Test: BEDSIDE GLUCOSE; Value: 152; Range: 80-115; Abnormal: Above high normal; Units: MG/DL; Status: F Lab Order: Fingerstick Blood Sugar; SPEC'M 04/12/16 11:28 Test: BEDSIDE GLUCOSE; Value: 90; Range: 80-115; Units: MG/DL; Status: F Radiology Order: EKG-ADULT Test: EKG-ADULT REASON FOR EXAMINATION: TIA; Stationary ECG Study; [facility] - ED; ; Test Date: 2016-04-11; Pat Name: SONYA MCCANN Department:; Room: -; Gender: M Administrative And Program Specialist: cammy; : 1950 Requested By: Sancho Mohan; Order Number: [id number] Reading MD: Becky Young; Measurements; Intervals [place]; Rate: 83 P: 63; MA: 160 QRS: 0; QRSD: 90 T: 44; QT: 346; QTc: 408; Interpretive Statements; SINUS RHYTHM WITH SINUS ARRHYTHMIA; POSSIBLE RIGHT VENTRICULAR CONDUCTION DELAY; NSTTW ABNORMALITY; SIMILAR 01/15/16; Electronically Signed On 04-11-2016 20:27:34 EST by Becky Young; Radiology Order: Chest, 1 View Test: Chest, 1 View REASON FOR EXAMINATION: TIA; PORTABLE CHEST X-RAY: Sitting AP view.; ; HISTORY: TIA.; ; Comparison chest x-ray August 06, 2015.; ; FINDINGS: The lungs are symmetrically aerated and clear. The pleural angles are; sharp. Heart is not felt to be enlarged. The aorta is somewhat tortuous. There; are degenerative changes in the thoracic spine and in the acromioclavicular; joints. Pulmonary vasculature is not increased.; ; IMPRESSION: No active disease.; ; ; Signed by; Simon Peters MD 04/11/2016 03:01 P; Radiology Order: MRI Brain without Contrast Test: MRI Brain without Contrast REASON FOR EXAMINATION: tia; MR BRAIN WITHOUT CONTRAST:; ; HISTORY: TIA's.; ; COMPARISON: 01/15/2016; ; Areas of increased signal intensity on T2 weighted images are present in the; periventricular and subcortical white matter. This represents small vessel; ischemic disease. There is no intraparenchymal hemorrhage, infarct, mass or; midline shift. The ventricular system and cortical sulci are dilated consistent; with mild volume loss. There is no extracerebral collection. Mucosal thickening; is present in the sinuses.; ; IMPRESSION:1. Small vessel ischemic disease.; ; 3. Mild volume loss.; ; ; Signed by; Mendel Sanchez MD 04/11/2016 04:57 P; Radiology Order: MRA BRAIN W/O CONTRAST Test: MRA BRAIN W/O CONTRAST REASON FOR EXAMINATION: tia; MRA BRAIN WITHOUT CONTRAST:; ; HISTORY: TIA's; ; 3D [id number] MR angiography was performed at the level of the [place] of; [place].; ; There is no aneurysm or arteriovenous malformation. Mild atherosclerotic disease; involves the horizontal petrous segments and cavernous and supraclinoid internal; carotid arteries , A1 segment of the right anterior cerebral artery, left; middle cerebral artery trifurcation and basilar artery. The P1 segments of the; posterior cerebral arteries are hypoplastic. The major intracranial vessels are; patent. The vertebral arteries are equal in size.; ; IMPRESSION:; ; 1. There is no aneurysm or arteriovenous malformation.; ; 2. Atherosclerotic disease as described above.; ; ; Signed by; Mendel Sanchez MD 04/11/2016 04:56 P; Radiology Order: Duplex,carotid (complete) Test: Duplex,carotid (complete) REASON FOR EXAMINATION: tia; Duplex carotid sonography:; ; History: TIA.; ; Comparison study is from 01/14/2016.; ; Findings: Antegrade flow is observed in both vertebral arteries.; ; Right carotid: The right common carotid artery shows mild diffuse intimal; thickening. There is mild mixed plaquing in the bulb on the right side. Color; flow and spectral Doppler interrogation remain unremarkable on the right.; ; Right CCA/PSV 100 cm/S; ; Right ICA/PSV 62; ; EDV 10; ; Right ECA/PSV 67; ; Right ICA/CCA ratio normal 0.6.; ; Impression:; ; 0-15% category narrowing in the right ICA. Doppler velocities have not increased; since prior study.; ; Left carotid: The left common carotid artery shows mild diffuse intimal; thickening. There is minimal soft plaquing in the left carotid bulb on; two-dimensional scanning. Color flow and spectral Doppler interrogation remain; unremarkable.; ; Left CCA/PSV 98 cm/S; ; Left ICA/PSV 65; ; EDV 10; ; Left ECA/PSV 77; ; Left ICA/CCA ratio normal 0.7.; ; Impression:; ; 0-15% category narrowing in the left ICA by Doppler velocity criteria. Doppler; velocities have not increased significantly since the prior exam.; ; ; Signed by; Simon Peters MD 04/11/2016 05:02 P; Outcome: 14:40 Decision to Hospitalize by Provider. pc 18:44 MRI Study completed. mlb1 22:38 Discharge Assessment: Patient awake, alert and oriented x 3. No cognitive and/or cf2 functional deficits noted. Patient verbalized understanding of disposition instructions. Patient awake and alert. patient administered narcotics - no. The following High Risk Discharge criteria are identified: Yes, Admitted ER admission nurse. Condition: stable. Property :Personal belongings accompany Pt. 04/12 16:14 Patient left the ED. [facility] Signatures: Dispatcher [employer] EDMS Sancho Lugo MD MD pc Jobson, Karen RN KENY j Ashish Lowery RN RN mlb1 Jada Roper,RN RN kr3 Edson Verma, CONDENSER SETTER CONDENSER SETTER kb5 Nba Hooks, CONDENSER SETTER CONDENSER SETTER dd6 Yeni Dawson br3 Natali Ji, RN RN sls1 Donovan Johnson dem1 Josh Desai nq Katie, [place], CONDENSER SETTER CONDENSER SETTER tmm1 Ashish Paz,RN RN mb9 Ev Flores jp5 Nallely VasquezRN RN kas2 Bianca Moore,RN RN cf2 Reji Casper, CONDENSER SETTER CONDENSER SETTER jmv Paula Palmer RN ck1 MTDD
--- NOTE | 2016-04-12 16:16 | EDDOCDS ---
Physician Documentation [facility] Name: Addy Mccann Age: 65 yrs Sex: Male : 1950 Arrival Date: 04/11/2016 Time: 12:57 Bed Admit Hold Private MD: Cass Fountain MD Disposition: 04/11 14:39 Critical Care: Critical care not applicable. pc Disposition: 04/11/16 14:40 Hospitalization ordered by Josh Desai for Inpatient Admission. Preliminary diagnosis are Amaurosis fugax, Type 2 diabetes mellitus. - Bed requested for PCU. - Status is Inpatient Admission. [facility] - Condition is Stable. - Problem is an ongoing problem. - Symptoms are unchanged. HPI: 13:51 This 65 yrs old Male presents to ER via Walkin/Carried/Asstd with pc complaints of Medical Complaint. 13:51 The history is obtained from the patient, Dr. Fountain. He has been having episodes of pc Amaurosis Fugax for 2+ months, occurring between 2-3 times daily to once weekly, lasting 1-15 minutes. He was admitted for the same in late December 2015, with normal MRIs, EKGs and echocardiogram. He was seen by Neurology and started on Plavix in addition to his usual ASA. He was seen in the Neurology office today and was sent for readmission, and Dr. Fountain requested the admitting team order cardiac monitoring and a YVON. The patient himself has no new complaints. Historical: - Allergies: no known allergies; - Home Meds: 1. aspirin 81 mg Oral tab 1 tab once daily 2. Janumet XR 50-1,000 mg oral tab twice a day 3. Lantus 100 unit/mL Sub-Q soln 20 unit 4. lisinopril 5 mg Oral tab 1 tab once daily 5. Miralax 17 gram/dose Oral powd 17 g once daily 6. Dulcolax (bisacodyl) 5 mg Oral TbEC 1 tab as needed 7. Plavix 75 mg Oral tab 1 tab once daily - PMHx: Diabetes - IDDM: uncontrolled; Pancreatitis; - PSHx: Cholecystectomy; Knee Arthroplasty, Right; Knee surgery- Left; - The history from nurses notes was reviewed: and I agree with what is documented. - Social history: Smoking status: Patient states former smoker of tobacco. No barriers to communication noted, The patient speaks fluent Brazilian. - : The pt / caregiver states he / she is on anticoagulants: Plavix. Home medication list is obtained from the patient. - Exposure Risk Screening:: None identified. - Immunization history:: All immunizations up-to-date. - Family history: Not pertinent. - Social history:: the patient is a non-smoker, the patient does not drink alcohol. ROS: 13:51 All systems are negative except as listed. pc Exam: 13:51 General Appearance: no acute distress, alert. pc 13:51 EENT: normal eye inspection, ears, nose and throat normal, pharynx normal, mucous membranes moist 13:51 Neck: 13:51 Respiratory: no respiratory distress, normal breath sounds, chest non-tender. 13:51 CVS: regular pulse rate, regular rhythm, normal S1 and S2, no murmurs, strong peripheral pulses, normal capillary refill. 13:51 Abdomen: soft, non-tender, no organomegaly, normal bowel sounds. 13:51 Back: 13:51 Skin: skin color is normal, warm, dry. 13:51 Extremities: The extremities have a grossly normal appearance, are non-tender, without acute ROM abnormalities. 13:51 Neuro: oriented x 3, cranial nerves normal as tested, no motor deficits, no sensory deficits, normal gait. 13:51 Psych: normal mood. Vital Signs: 12:59 BP 137 / 83; Pulse 96; Resp 18 S; Temp 97.3(O); Pulse Ox 98% on R/A; Weight 85.28 kg / dd6 188.01 lbs (R); Height 5 ft. 9 in. (175.26 cm) (R); 13:57 BP 118 / 76 (auto/); kas2 13:59 Pulse 94 MON; Pulse Ox 97% ; kas2 13:59 Resp 20; Temp 98.2(O); kas2 14:12 BP 113 / 68 (auto/); kas2 14:12 Pulse 82 MON; Pulse Ox 100% ; kas2 14:27 BP 124 / 75 (auto/); kas2 14:27 Pulse 106 MON; Pulse Ox 100% ; kas2 14:42 BP 125 / 70 (auto/); kas2 14:42 Pulse 102 MON; Pulse Ox 97% ; kas2 14:57 BP 120 / 68 (auto/); kas2 14:57 Pulse 78 MON; Pulse Ox 97% ; kas2 15:12 BP 124 / 77 (auto/); kas2 15:12 Pulse 86 MON; Pulse Ox 96% ; kas2 16:34 BP 116 / 74 (auto/); kas2 16:35 Pulse 98 MON; Pulse Ox 97% ; kas2 16:49 BP 115 / 70 (auto/); kas2 16:49 Pulse 98 MON; Pulse Ox 97% ; kas2 17:04 BP 117 / 72 (auto/); kas2 17:04 Pulse 100 MON; Pulse Ox 98% ; kas2 17:19 BP 108 / 70 (auto/); kas2 17:19 Pulse 98 MON; Pulse Ox 97% ; kas2 17:34 BP 129 / 74 (auto/); kas2 17:34 Pulse 94 MON; kas2 17:49 BP 113 / 77 (auto/); kas2 17:49 Pulse 98 MON; kas2 18:04 BP 152 / 81 (auto/); kas2 18:04 Pulse 100 MON; Pulse Ox 98% ; kas2 18:19 BP 144 / 74 (auto/); kas2 18:19 Pulse 90 MON; Pulse Ox 97% ; kas2 18:49 BP 97 / 55 (auto/); kas2 18:49 Pulse 92 MON; Pulse Ox 96% ; kas2 19:04 BP 125 / 75 (auto/); kas2 19:04 Pulse 100 MON; Pulse Ox 98% ; kas2 19:19 BP 113 / 57 (auto/); kas2 19:19 Pulse 98 MON; Pulse Ox 96% ; kas2 20:45 Resp 20; Temp 98.8; kas2 12:59 Body Mass Index 27.76 (85.28 kg, 175.26 cm) dd6 MDM: 13:29 BED REQUEST+ADM ordered. EDMS 13:43 Metal Miner/Pulse Ox/q 30 min VS ordered. pc 13:43 CBC Ordered. EDMS 13:43 MED Profile Ordered. EDMS 13:44 ECG WITH READING ER PHYS+CARDIAG ordered. EDMS 13:45 A1C Ordered. EDMS 13:45 Chest, 1 View Ordered. EDMS 13:49 CONSISTENT CARBOHYDRATE+DIET ordered. EDMS 13:51 Differential Diagnosis: recurrent Amaurosis Fugax left eye; poorly controlled DM. Plan: pc d/w Dr. Desai re: pre-admission tests required. 13:51 Physician consultation: Dr. Josh Desai regarding patient's condition, and he pc requests the tests as ordered and will discuss with Dr. Fountain regarding need for MRIs. 14:00 Test interpretation: EKG. pc 14:38 CBC Reviewed. pc 14:38 A1C Reviewed. pc 14:39 MED Profile Reviewed. pc 14:39 Data reviewed: old medical records, vital signs, nurses notes, EKG(s), lab test pc results, all radiology studies and available results. Test interpretation: LAB - all labs as ordered have been reviewed, interpreted and considered in the overall management of the clinical presentation; X-RAY - interpreted by Radiologist and personally reviewed, 1 view chest no acute disease. The patient has been re-examined and re-evaluated. The clinical presentation did not require any ED treatment or interventions. Disposition: The historical points, examination findings, and any diagnostic results supporting the provided diagnosis, were discussed with the patient or legal guardian. The need for further work-up and/or treatment in the hospital was explained. 14:49 TRANSESPHOGEAL ECHO/DOPPLER/CF ordered. EDMS 15:00 Admission / Observation Status ordered. EDMS 15:01 CONSISTENT CARBOHYDRATES ordered. EDMS 15:01 PROTHROMBIN TIME PROFILE\E\INR Ordered. EDMS 15:01 SICKLE CELL SCREEN Ordered. EDMS 15:01 ERYTHROCYTE SEDIMENTATION RATE Ordered. EDMS 15:01 THYROID STIMULATING HORMONE Ordered. EDMS 15:04 NPO FOR TEST/PROCEDURE ordered. EDMS 15:10 MRI Brain without Contrast Ordered. EDMS 15:10 MRA BRAIN W/O CONTRAST Ordered. EDMS 15:10 Duplex,carotid (complete) Ordered. EDMS 15:36 [facility] Payment Agreement was scanned into [employer] and attached to record. jp5 15:37 Financial registration complete. jp5 17:37 Insulin Regular Human 4 units Sub-Q once ordered. mlb1 19:33 BASIC METABOLIC PROFILE Ordered. EDMS 19:33 COMPLETE BLOOD COUNT Ordered. EDMS 23:05 Fingerstick Blood Sugar Ordered. EDMS 04/12 11:37 Fingerstick Blood Sugar Ordered. EDMS EC/24 14:00 Rate is 83 beats/min. Rhythm is regular, Normal Sinus Rhythm. QRS [place] is Normal. [place] pc interval is normal. QRS interval is normal. QT interval is normal. No Q waves. T waves are Normal. No ST changes noted. Clinical impression: Normal Sinus Rhythm and Incomplete RBBB. Point of Care Testing: Blood Glucose: 16:58 Blood Glucose: 168 mg/dL; mlb1 Ranges: Administered Medications: 17:44 Drug: Insulin Regular Human 4 units [insulin regular human 100 unit/mL injection mlb1 solution (0.04 mL)] {Co-Signature: ck1 (Paula Palmer RN).} Route: Sub-Q; Site: left upper arm; Signatures: Dispatcher [employer] EDMS Sancho Lugo MD MD pc Jobson, Karen, RN RN Ashish Petit RN RN mlb1 Jada Roper,RN RN Ev Martinez jp5 Paula Palmer RN ck1 The chart was reviewed and I authenticate all verbal orders and agree with the evaluation and treatment provided.Corrections: (The following items were deleted from the chart) 04/12 07:05 04/11 15:01 ELECTROCARDIOGRAM ADULT ordered. EDWV EDWV Attachments: 15:36 [facility] Payment Agreement jp5 MTDD
[2016-04-12] MEDS ORDERED: D5W 1,000 ML IV ONE (17:45)
--- NOTE | 2016-04-12 18:52 | RO ---
DATE OF PROCEDURE: 04/12/2016 REFERRING PHYSICIAN: Dr. Laura Bhardwaj INDICATION: Cerebrovascular accident/transient ischemic accident (TIA). PROCEDURE: Transesophageal echocardiogram. ANESTHESIA: Conscious sedation. POSTPROCEDURE DIAGNOSES: Essentially normal transesophageal echocardiogram. BRIEF HISTORY: Mr. Mccann is a 65-year-old male who comes with recurrent amaurosis fugax. Because no obvious etiology was established I was asked to perform transesophageal echocardiogram to evaluate for potential cardiac source of emboli. I discussed the nature of the procedure and its possible complications with the patient the night before and then again in the morning of the procedure. Appropriate consent was obtained. PROCEDURE NOTE: Procedure was performed in endoscopy suite. The patient presented in fasting condition. His posterior pharynx was anesthetized using viscous lidocaine and Cetacaine spray. Subsequently he was sedated with total 4 mg of intravenous (IV) Versed and 50 mcg is of IV fentanyl. When appropriate level of sedation was accomplished, probe was introduced into initially esophagus and then stomach without difficulty. After appropriate images were obtained it was withdrawn. The patient tolerated the procedure well and there were no immediate complications. FINDINGS: Both atria appear grossly normal for his age. His left atrial appendage is a relatively small and is free of thrombus and there is normal flow. Flow in both right and left-sided pulmonary veins is normal. Atrial septum is intact based on two-dimensional, color Doppler imaging as well as after injection of agitated saline. There was no evidence for [id number]-ptyi and whzj-eq-ywrgl shunt. Left ventricle is of normal systolic function. Same applies for right ventricle. Aortic, mitral, tricuspid and pulmonic valves were all well seen and appear normal. By Doppler imaging there is no aortic stenosis or insufficiency. There is trace mitral and trace tricuspid insufficiency. Calculated pulmonary artery pressure is within normal limits. Aortic root and visualized part of aortic arch and descending aorta have minimal atherosclerosis. CONCLUSIONS: 1. Normal left ventricle (LV) systolic function. 2. No significant valvular disease. 3. Intact atrial septum. 4. No significant thoracic aortic atherosclerosis. 5. Left atrial appendage is relatively small and free of thrombus. COMMENT: Subacute bacterial endocarditis (SBE) prophylaxis is not indicated. The study did not reveal any evidence for cardiac source of emboli. Preliminary results of the study were communicated to Dr. Bhardwaj. JD
[2016-04-13 02:00] VITALS: BP 115/70
[2016-04-13] MEDS: HEPARIN SOD (PORCINE) 5000 UNITS/ML VIAL SC SCH (05:21)
[2016-04-13 06:00] VITALS: BP 112/73
[2016-04-13 06:30] LABS: MEAN CORPUSCULAR HEMOGLOBIN 29.3 pg (27.0-33.0); MEAN CORPUSCULAR HGB CONC 32.6 g/dl (32.0-36.5); MEAN CORPUSCULAR VOLUME 89.8 fl (80.0-96.0); RED CELL DISTRIBUTION WIDTH 13.9 % (11.5-14.5); WHITE BLOOD COUNT 5.6 K/mm3 (4.0-10.0)
[2016-04-13 06:36] LABS: ANION GAP 8 MEQ/L (8-16); BLOOD UREA NITROGEN 15 MG/DL (7-18); CALCIUM LEVEL 8.2 MG/DL (8.8-10.2); CARBON DIOXIDE LEVEL 24 MEQ/L (21-32); CHLORIDE LEVEL 109 MEQ/L (98-107); CREATININE FOR GFR 0.92 MG/DL (0.70-1.30); GLOMERULAR FILTRATION RATE > 60.0 (>49); GLUCOSE, FASTING 208 MG/DL (80-110); POTASSIUM SERUM 4.2 MEQ/L (3.5-5.1); SODIUM LEVEL 141 MEQ/L (136-145)
[2016-04-13] MEDS: LISINOPRIL 5 MG TAB PO SCH (08:39)
[2016-04-13] MEDS: HumaLOG INSULIN (NovoLOG) PER UNIT SC SCH (08:39)
[2016-04-13 10:00] VITALS: BP 152/69
--- NOTE | 2016-04-13 22:16 | DSES ---
DATE OF ADMISSION: 04/11/2016 DATE OF DISCHARGE: 04/13/2016 FOX RAISER: Dr. Justin NEUROLOGIST: Dr. Fountain PRIMARY CARE PROVIDER: Dr. Stack DRAFTER CIVIL (CAD): Dr. Anderson, covered by Dr. Blanco FINAL DIAGNOSES: 1. Amaurosis fugax of the left eye. 2. Transient ischemic attack. 3. Insulin-dependent diabetes. 4. Dyslipidemia. HISTORY OF PRESENT ILLNESS: This is a 65-year-old male patient with underlying medical history of poorly controlled diabetes, insulin dependent, hypertension, amaurosis fugax, diagnosed at least several months ago, history of pancreatitis, hypertension. Patient previously had MRI of the brain and transthoracic echocardiogram, which did not show anything significant. Was diagnosed with poorly controlled diabetes and placed on insulin. Patient was discharged previously after diagnosis of amaurosis fugax to followup with Dr. Fountain and seen by choir director. Patient reported symptoms have worsened, presenting itself two to three times a week, lasting a couple minutes. Dr. Fountain has been following and treating for possible complex migraine, which did not help his symptoms. Subsequently Dr. Fountain has sent the patient in for further diagnosis and workup and for transesophageal echocardiogram and ophthalmology evaluation. HOSPITAL COURSE: Patient was admitted to the hospital. Ultrasound of carotid was done. MRI/MRA of the brain were done, which wee all negative. Dr. Justin was called for transesophageal echocardiogram, which was negative. Neurologic check was done. Dr. Blanco has seen the patient as well. Insulin was provided. Deep vein thrombosis (DVT) prophylaxis was provided. Patient was placed on aspirin and Plavix. Patient had no further episode during hospital course. Case discussed with Dr. Fountain given patient had negative symptoms. Dr. Fountain agreed that the patient can be discharged for further followup. Dr. Fountain will consider referring the patient to [facility] for further workup and care. Patient currently tolerating oral, back to baseline. Able to ambulate with no acute distress. VITAL SIGNS: Temperature 97.4, pulse 88, respirations 18, blood pressure 152/69, pulse oximetry 98% on room air. LABORATORY DATA: WBC 5.6 hemoglobin and hematocrit 12.3/37.7, platelets 168. Chemistry: Sodium 141, potassium 4.2, chloride 109, bicarbonate 24, BUN 15, creatinine 0.92. DISCHARGE MEDICATIONS: - aspirin 81 mg p daily - Dulcolax rectal suppository 5 mg daily - Plavix 75 mg by mouth daily - glyburide 5 mg by mouth daily - Lantus insulin 20 units subcutaneous daily - lisinopril 5 mg by mouth daily - MiraLax 17 grams by mouth daily as needed - Zocor 20 mg by mouth daily - Janumet 51,000 mg tablets one by mouth twice a day - Voltaren 1% gel topical as needed for pain DISCHARGE INSTRUCTIONS: Patient is instructed to followup with Dr. Fountain and also patient's choir director, Dr. Anderson, for further care. Followup with primary care provider for management of blood pressure and diabetes. Followup with Dr. Fountain for possible referral to [facility] for further workup. Return to the hospital if symptoms worsen.
--- NOTE | 2016-04-14 17:15 | EDDOCDS ---
Physician Documentation [facility] Name: Addy Mccann Age: 65 yrs Sex: Male : 1950 Arrival Date: 04/11/2016 Time: 12:57 Bed Admit Hold Private MD: Cass Fountain MD Disposition: 04/11 14:39 Critical Care: Critical care not applicable. pc Disposition: 04/11/16 14:40 Hospitalization ordered by Josh Desai for Inpatient Admission. Preliminary diagnosis are Amaurosis fugax, Type 2 diabetes mellitus. - Bed requested for PCU. - Status is Inpatient Admission. [facility] - Condition is Stable. - Problem is an ongoing problem. - Symptoms are unchanged. HPI: 13:51 This 65 yrs old Male presents to ER via Walkin/Carried/Asstd with pc complaints of Medical Complaint. 13:51 The history is obtained from the patient, Dr. Fountain. He has been having episodes of pc Amaurosis Fugax for 2+ months, occurring between 2-3 times daily to once weekly, lasting 1-15 minutes. He was admitted for the same in late December 2015, with normal MRIs, EKGs and echocardiogram. He was seen by Neurology and started on Plavix in addition to his usual ASA. He was seen in the Neurology office today and was sent for readmission, and Dr. Fountain requested the admitting team order cardiac monitoring and a YVON. The patient himself has no new complaints. Historical: - Allergies: no known allergies; - Home Meds: 1. aspirin 81 mg Oral tab 1 tab once daily 2. Janumet XR 50-1,000 mg oral tab twice a day 3. Lantus 100 unit/mL Sub-Q soln 20 unit 4. lisinopril 5 mg Oral tab 1 tab once daily 5. Miralax 17 gram/dose Oral powd 17 g once daily 6. Dulcolax (bisacodyl) 5 mg Oral TbEC 1 tab as needed 7. Plavix 75 mg Oral tab 1 tab once daily - PMHx: Diabetes - IDDM: uncontrolled; Pancreatitis; - PSHx: Cholecystectomy; Knee Arthroplasty, Right; Knee surgery- Left; - The history from nurses notes was reviewed: and I agree with what is documented. - Social history: Smoking status: Patient states former smoker of tobacco. No barriers to communication noted, The patient speaks fluent Taiwanese. - : The pt / caregiver states he / she is on anticoagulants: Plavix. Home medication list is obtained from the patient. - Exposure Risk Screening:: None identified. - Immunization history:: All immunizations up-to-date. - Family history: Not pertinent. - Social history:: the patient is a non-smoker, the patient does not drink alcohol. ROS: 13:51 All systems are negative except as listed. pc Exam: 13:51 General Appearance: no acute distress, alert. pc 13:51 EENT: normal eye inspection, ears, nose and throat normal, pharynx normal, mucous membranes moist 13:51 Neck: 13:51 Respiratory: no respiratory distress, normal breath sounds, chest non-tender. 13:51 CVS: regular pulse rate, regular rhythm, normal S1 and S2, no murmurs, strong peripheral pulses, normal capillary refill. 13:51 Abdomen: soft, non-tender, no organomegaly, normal bowel sounds. 13:51 Back: 13:51 Skin: skin color is normal, warm, dry. 13:51 Extremities: The extremities have a grossly normal appearance, are non-tender, without acute ROM abnormalities. 13:51 Neuro: oriented x 3, cranial nerves normal as tested, no motor deficits, no sensory deficits, normal gait. 13:51 Psych: normal mood. Vital Signs: 12:59 BP 137 / 83; Pulse 96; Resp 18 S; Temp 97.3(O); Pulse Ox 98% on R/A; Weight 85.28 kg / dd6 188.01 lbs (R); Height 5 ft. 9 in. (175.26 cm) (R); 13:57 BP 118 / 76 (auto/); kas2 13:59 Pulse 94 MON; Pulse Ox 97% ; kas2 13:59 Resp 20; Temp 98.2(O); kas2 14:12 BP 113 / 68 (auto/); kas2 14:12 Pulse 82 MON; Pulse Ox 100% ; kas2 14:27 BP 124 / 75 (auto/); kas2 14:27 Pulse 106 MON; Pulse Ox 100% ; kas2 14:42 BP 125 / 70 (auto/); kas2 14:42 Pulse 102 MON; Pulse Ox 97% ; kas2 14:57 BP 120 / 68 (auto/); kas2 14:57 Pulse 78 MON; Pulse Ox 97% ; kas2 15:12 BP 124 / 77 (auto/); kas2 15:12 Pulse 86 MON; Pulse Ox 96% ; kas2 16:34 BP 116 / 74 (auto/); kas2 16:35 Pulse 98 MON; Pulse Ox 97% ; kas2 16:49 BP 115 / 70 (auto/); kas2 16:49 Pulse 98 MON; Pulse Ox 97% ; kas2 17:04 BP 117 / 72 (auto/); kas2 17:04 Pulse 100 MON; Pulse Ox 98% ; kas2 17:19 BP 108 / 70 (auto/); kas2 17:19 Pulse 98 MON; Pulse Ox 97% ; kas2 17:34 BP 129 / 74 (auto/); kas2 17:34 Pulse 94 MON; kas2 17:49 BP 113 / 77 (auto/); kas2 17:49 Pulse 98 MON; kas2 18:04 BP 152 / 81 (auto/); kas2 18:04 Pulse 100 MON; Pulse Ox 98% ; kas2 18:19 BP 144 / 74 (auto/); kas2 18:19 Pulse 90 MON; Pulse Ox 97% ; kas2 18:49 BP 97 / 55 (auto/); kas2 18:49 Pulse 92 MON; Pulse Ox 96% ; kas2 19:04 BP 125 / 75 (auto/); kas2 19:04 Pulse 100 MON; Pulse Ox 98% ; kas2 19:19 BP 113 / 57 (auto/); kas2 19:19 Pulse 98 MON; Pulse Ox 96% ; kas2 20:45 Resp 20; Temp 98.8; kas2 12:59 Body Mass Index 27.76 (85.28 kg, 175.26 cm) dd6 MDM: 13:29 BED REQUEST+ADM ordered. EDMS 13:43 Nitric Acid Concentrator Operator/Pulse Ox/q 30 min VS ordered. pc 13:43 CBC Ordered. EDMS 13:43 MED Profile Ordered. EDMS 13:44 ECG WITH READING ER PHYS+CARDIAG ordered. EDMS 13:45 A1C Ordered. EDMS 13:45 Chest, 1 View Ordered. EDMS 13:49 CONSISTENT CARBOHYDRATE+DIET ordered. EDMS 13:51 Differential Diagnosis: recurrent Amaurosis Fugax left eye; poorly controlled DM. Plan: pc d/w Dr. Desai re: pre-admission tests required. 13:51 Physician consultation: Dr. Josh Desai regarding patient's condition, and he pc requests the tests as ordered and will discuss with Dr. Fountain regarding need for MRIs. 14:00 Test interpretation: EKG. pc 14:38 CBC Reviewed. pc 14:38 A1C Reviewed. pc 14:39 MED Profile Reviewed. pc 14:39 Data reviewed: old medical records, vital signs, nurses notes, EKG(s), lab test pc results, all radiology studies and available results. Test interpretation: LAB - all labs as ordered have been reviewed, interpreted and considered in the overall management of the clinical presentation; X-RAY - interpreted by Radiologist and personally reviewed, 1 view chest no acute disease. The patient has been re-examined and re-evaluated. The clinical presentation did not require any ED treatment or interventions. Disposition: The historical points, examination findings, and any diagnostic results supporting the provided diagnosis, were discussed with the patient or legal guardian. The need for further work-up and/or treatment in the hospital was explained. 14:49 TRANSESPHOGEAL ECHO/DOPPLER/CF ordered. EDMS 15:00 Admission / Observation Status ordered. EDMS 15:01 CONSISTENT CARBOHYDRATES ordered. EDMS 15:01 PROTHROMBIN TIME PROFILE\E\INR Ordered. EDMS 15:01 SICKLE CELL SCREEN Ordered. EDMS 15:01 ERYTHROCYTE SEDIMENTATION RATE Ordered. EDMS 15:01 THYROID STIMULATING HORMONE Ordered. EDMS 15:04 NPO FOR TEST/PROCEDURE ordered. EDMS 15:10 MRI Brain without Contrast Ordered. EDMS 15:10 MRA BRAIN W/O CONTRAST Ordered. EDMS 15:10 Duplex,carotid (complete) Ordered. EDMS 15:36 [facility] Payment Agreement was scanned into [employer] and attached to record. jp5 15:37 Financial registration complete. jp5 17:37 Insulin Regular Human 4 units Sub-Q once ordered. mlb1 19:33 BASIC METABOLIC PROFILE Ordered. EDMS 19:33 COMPLETE BLOOD COUNT Ordered. EDMS 23:05 Fingerstick Blood Sugar Ordered. EDMS 04/12 11:37 Fingerstick Blood Sugar Ordered. EDMS EC/24 14:00 Rate is 83 beats/min. Rhythm is regular, Normal Sinus Rhythm. QRS [place] is Normal. [place] pc interval is normal. QRS interval is normal. QT interval is normal. No Q waves. T waves are Normal. No ST changes noted. Clinical impression: Normal Sinus Rhythm and Incomplete RBBB. Point of Care Testing: Blood Glucose: 16:58 Blood Glucose: 168 mg/dL; mlb1 Ranges: Administered Medications: 17:44 Drug: Insulin Regular Human 4 units [insulin regular human 100 unit/mL injection mlb1 solution (0.04 mL)] {Co-Signature: ck1 (Paula Palmer RN).} Route: Sub-Q; Site: left upper arm; Signatures: Dispatcher [employer] EDMS Sancho Lugo MD MD pc Jobson, Karen, RN RN Ashish Petit RN RN mlb1 Jada Roper,RN RN Ev Martinez jp5 Paula Palmer RN ck1 The chart was reviewed and I authenticate all verbal orders and agree with the evaluation and treatment provided.Corrections: (The following items were deleted from the chart) 04/12 07:05 04/11 15:01 ELECTROCARDIOGRAM ADULT ordered. EDVT EDVT Attachments: 15:36 [facility] Payment Agreement jp5 Chart Complete MTDD
--- NOTE | 2016-04-14 17:15 | EDDOCDS ---
Nurse's Notes [facility] Name: Sonya Mccann Age: 65 yrs Sex: Male : 1950 Arrival Date: 04/11/2016 Time: 12:57 Bed Admit Hold Private MD: Cass Fountain MD Diagnosis: Amaurosis fugax;Type 2 diabetes mellitus Presentation: 04/11 13:00 Presenting complaint: Patient states: loosing site in left eye since December. Reports kr3 needs test to rule out TIA. Reports multiple episodes of sight loss with multiple admissions for same, most recent mid February. Reports vision normal at this time. Adult Sepsis Screening: The patient does not have new or worsening altered mentation. Patient's respiratory rate is less than 22. Systolic blood pressure is greater than 100. Patient has a qSOFA score of 0- Negative Sepsis Screen. Suicide/Homicide risk assessment- the patient denies having any suicidal and/or homicidal ideations and does not present with any other emotional, behavioral or mental health complaints. Status: Patient is not a care services manager or dependent. Transition of care: patient was received from Dr Odell. 13:00 Method Of Arrival: Walkin/Carried/Asstd kr3 13:00 Acuity: JAQUAN Level 3 kr3 Triage Assessment: 13:06 General: Appears in no apparent distress, comfortable, Behavior is appropriate for age, kr3 cooperative. Pain: Denies pain. HIV screening NA for this visit Offered previously. Neurological: Level of Consciousness is awake, alert, Kiln Operator are equal bilaterally Moves all extremities. Gait is steady, Speech is normal. EENT: Reports intermittent vision disturbance left eye. Respiratory: Respiratory effort is even, unlabored. Derm: Skin is normal. Historical: - Allergies: no known allergies; - Home Meds: 1. aspirin 81 mg Oral tab 1 tab once daily 2. Janumet XR 50-1,000 mg oral tab twice a day 3. Lantus 100 unit/mL Sub-Q soln 20 unit 4. lisinopril 5 mg Oral tab 1 tab once daily 5. Miralax 17 gram/dose Oral powd 17 g once daily 6. Dulcolax (bisacodyl) 5 mg Oral TbEC 1 tab as needed 7. Plavix 75 mg Oral tab 1 tab once daily - PMHx: Diabetes - IDDM: uncontrolled; Pancreatitis; - PSHx: Cholecystectomy; Knee Arthroplasty, Right; Knee surgery- Left; - The history from nurses notes was reviewed: and I agree with what is documented. - Social history: Smoking status: Patient states former smoker of tobacco. No barriers to communication noted, The patient speaks fluent Taiwanese. - : The pt / caregiver states he / she is on anticoagulants: Plavix. Home medication list is obtained from the patient. - Exposure Risk Screening:: None identified. - Immunization history:: All immunizations up-to-date. - Family history: Not pertinent. - Social history:: the patient is a non-smoker, the patient does not drink alcohol. Screenin:44 Screening information is obtained from the patient. Fall risk: No risks identified. mlb1 Assistance ADL's: requires no assistance with activities of daily living. Abuse/DV Screen: The patient / caregiver reports he/she is: not in a situation that causes fear, pain or injury. Nutritional screening: No deficits noted. Advance Directives: Currently, there is no health care proxy. home support is adequate. Assessment: 13:37 General: Appears in no apparent distress, comfortable, Behavior is appropriate for age, mlb1 cooperative. Pain: Denies pain. Neurological: Level of Consciousness is awake, alert, Oriented to person, place, time, Moves all extremities. Full function Speech is normal, Facial symmetry appears normal, Facial symmetry: tongue is midline. 14:14 General: Appears in no apparent distress, comfortable, Behavior is appropriate for age, mlb1 cooperative. Pain: Denies pain. 15:11 General: Appears in no apparent distress, comfortable, Behavior is appropriate for age, mlb1 cooperative. Pain: Denies pain. Neurological: No deficits noted. Respiratory: No deficits noted. 17:11 General: Appears in no apparent distress, comfortable, Behavior is appropriate for age, mlb1 cooperative. Pain: Denies pain. Neurological: No deficits noted. Respiratory: No deficits noted. 18:43 General: Appears in no apparent distress, comfortable, Behavior is appropriate for age, mlb1 cooperative. Pain: Denies pain. Neurological: No deficits noted. Respiratory: No deficits noted. 19:03 General: Verbal report given by Trace Cueva RN. Assumed care of patient at this time.. kas2 19:21 General: Appears in no apparent distress, comfortable, well nourished, well groomed, kas2 Behavior is appropriate for age, cooperative. Pain: Denies pain. Neurological: Level of Consciousness is awake, alert, Oriented to person, place, time. Cardiovascular: Capillary refill < 3 seconds Heart tones S1 S2 present Rhythm is sinus rhythm No ectopy. Respiratory: No deficits noted. Airway is patent Respiratory effort is even, unlabored, Respiratory pattern is regular, symmetrical, Breath sounds are clear bilaterally. Derm: Skin is intact, Skin is dry, Skin is pink, warm & dry. Skin temperature is warm. 20:05 General: Patient resting in bed watching TV. Denies pain or discomfort at this time. kas2 Appears comfortable. No apparent distress. Airway patent and respiratory effort even and unlabored. Call jimenez within reach. Will continue to monitor.. 20:35 General: Verbal report given to Bianca Larios RN.. kas2 22:02 General: Patient with complaint of sore throat. "I feel like I am getting a sore throat cf2 from being down in the ER with all these sick people". No abnormalities noted in throat. Spoke with Dr Bingham and he is going to order lozenger for patient. Vital Signs: 12:59 BP 137 / 83; Pulse 96; Resp 18 S; Temp 97.3(O); Pulse Ox 98% on R/A; Weight 85.28 kg dd6 (R); Height 5 ft. 9 in. (175.26 cm) (R); 13:57 BP 118 / 76 (auto/); kas2 13:59 Pulse 94 MON; Pulse Ox 97% ; kas2 13:59 Resp 20; Temp 98.2(O); kas2 14:12 BP 113 / 68 (auto/); kas2 14:12 Pulse 82 MON; Pulse Ox 100% ; kas2 14:27 BP 124 / 75 (auto/); kas2 14:27 Pulse 106 MON; Pulse Ox 100% ; kas2 14:42 BP 125 / 70 (auto/); kas2 14:42 Pulse 102 MON; Pulse Ox 97% ; kas2 14:57 BP 120 / 68 (auto/); kas2 14:57 Pulse 78 MON; Pulse Ox 97% ; kas2 15:12 BP 124 / 77 (auto/); kas2 15:12 Pulse 86 MON; Pulse Ox 96% ; kas2 16:34 BP 116 / 74 (auto/); kas2 16:35 Pulse 98 MON; Pulse Ox 97% ; kas2 16:49 BP 115 / 70 (auto/); kas2 16:49 Pulse 98 MON; Pulse Ox 97% ; kas2 17:04 BP 117 / 72 (auto/); kas2 17:04 Pulse 100 MON; Pulse Ox 98% ; kas2 17:19 BP 108 / 70 (auto/); kas2 17:19 Pulse 98 MON; Pulse Ox 97% ; kas2 17:34 BP 129 / 74 (auto/); kas2 17:34 Pulse 94 MON; kas2 17:49 BP 113 / 77 (auto/); kas2 17:49 Pulse 98 MON; kas2 18:04 BP 152 / 81 (auto/); kas2 18:04 Pulse 100 MON; Pulse Ox 98% ; kas2 18:19 BP 144 / 74 (auto/); kas2 18:19 Pulse 90 MON; Pulse Ox 97% ; kas2 18:49 BP 97 / 55 (auto/); kas2 18:49 Pulse 92 MON; Pulse Ox 96% ; kas2 19:04 BP 125 / 75 (auto/); kas2 19:04 Pulse 100 MON; Pulse Ox 98% ; kas2 19:19 BP 113 / 57 (auto/); kas2 19:19 Pulse 98 MON; Pulse Ox 96% ; kas2 20:45 Resp 20; Temp 98.8; kas2 12:59 Body Mass Index 27.76 (85.28 kg, 175.26 cm) dd6 Vitals: 12:59 Log In Time: April 11, 2016 at 12:57. dd6 ED Course: 12:58 Patient visited by Nba Hooks PCA. dd6 12:58 Patient moved to Waiting dd6 12:59 Cass Fountain is Private Physician. dd6 12:59 Patient moved to Pre RCE dd6 13:04 Triage Initiated kr3 13:25 Patient moved to 11 kr3 13:34 Sancho Lugo MD is Attending Physician. pc 13:38 Patient visited by Ashish Lowery, KENY. mlb1 13:43 Patient visited by Sancho Lugo MD. pc 13:57 EKG done. (by ED staff). Reviewed by Sancho Lugo MD. dem1 13:59 Patient visited by Donovan Johnson. dem1 13:59 youth nutritional monitor on. Pulse ox on. NIBP on. dem1 14:10 A1C Sent. mb9 14:19 Josh Desai range ecologist. nq 14:39 Patient visited by Donovan Johnson. dem1 14:39 Diet: Patient given regular meal. dem1 14:40 Josh Desai is Hospitalizing Provider. pc 15:01 Chest, 1 View Returned. EDMS 15:11 Patient visited by Ashish Lowery, KENY. mlb1 15:17 Patient moved to Ultrasound br3 15:21 Patient moved to 11 br3 15:24 Patient moved to MRI mlb1 15:36 [facility] Payment Agreement was scanned into [employer] and attached to record. jp5 16:31 Patient moved to Admit Hold tmm1 16:44 MRA BRAIN W/O CONTRAST Returned. EDMS 16:44 MRI Brain without Contrast Returned. EDMS 17:11 Patient visited by Ashish Lowery, KENY. mlb1 17:36 Duplex,carotid (complete) Returned. EDMS 18:44 No IV's were initiated during this patient's visit. No procedures done that require mlb1 assistance. 18:45 Patient visited by Ashish Lowery, KENY. mlb1 19:03 Nallely Vasquez RN is Primary Nurse. kas2 19:04 Patient visited by Edson Verma PCA. kb5 19:04 Patient visited by Nallely Vasquez RN. kas2 19:25 Patient visited by Nallely Vasquez RN. kas2 20:45 Patient visited by Nallely Vasquez RN. kas2 21:05 Patient moved to 15 jmv 21:06 Patient moved to Admit Hold sls1 21:17 EKG-ADULT Returned. EDMS 21:47 Primary Nurse role handed off by Nallely Vasquez RN cf2 21:47 Bianca Moore,KENY is Primary Nurse. cf2 21:47 Patient visited by Bianca Moore RN. cf2 22:02 Patient visited by Bianca Moore,KENY. cf2 22:18 Patient visited by Nallely Vasquez RN. kas2 22:18 Inserted saline lock: 20 gauge in right forearm The patient tolerated the procedure kas2 well. 22:38 Patient visited by Bianca Moore,KENY. cf2 22:39 The patient / caregiver is instructed regarding the plan of care and ED course. Patient cf2 has correct armband on for positive identification. Placed in gown. Bed in low position. Call light in reach. Side rails up X 1. Side rails up X2. Care assumed by holding Nurse. Please see paper chart forms. Report is given to nallely. Property :Personal belongings accompany Pt. Administered Medications: 17:44 Drug: Insulin Regular Human 4 units [insulin regular human 100 unit/mL injection mlb1 solution (0.04 mL)] {Co-Signature: ck1 (Paula Palmer RN).} Route: Sub-Q; Site: left upper arm; Point of Care Testing: Blood Glucose: 16:58 Blood Glucose: 168 mg/dL; mlb1 Ranges: Order Results: Lab Order: CBC; SPEC'M 04/11/16 14:03 Test: WHITE BLOOD COUNT; Value: 7.2; Range: 4.0-10.0; Units: K/mm3; Status: F Test: RED BLOOD COUNT; Value: 4.45; Range: 4.30-6.10; Units: M/mm3; Status: F Test: HEMOGLOBIN; Value: 12.6; Range: 14.0-18.0; Abnormal: Below low normal; Units: g/dl; Status: F Test: HEMATOCRIT; Value: 38.9; Range: 42.0-52.0; Abnormal: Below low normal; Units: %; Status: F Test: MEAN CORPUSCULAR VOLUME; Value: 87.3; Range: 80.0-96.0; Units: fl; Status: F Test: MEAN CORPUSCULAR HEMOGLOBIN; Value: 28.2; Range: 27.0-33.0; Units: pg; Status: F Test: MEAN CORPUSCULAR HGB CONC; Value: 32.3; Range: 32.0-36.5; Units: g/dl; Status: F Test: RED CELL DISTRIBUTION WIDTH; Value: 14.4; Range: 11.5-14.5; Units: %; Status: F Test: PLATELET COUNT, AUTOMATED; Value: 189; Range: 150-450; Units: k/mm3; Status: F Lab Order: MED Profile; SPEC'M 04/11/16 14:03 Test: GLUCOSE, FASTING; Value: 133; Range: 80-110; Abnormal: Above high normal; Units: MG/DL; Status: F Test: BLOOD UREA NITROGEN; Value: 18; Range: 7-18; Units: MG/DL; Status: F Test: CREATININE FOR GFR; Value: 1.18; Range: 0.70-1.30; Units: MG/DL; Status: F Test: GLOMERULAR FILTRATION RATE; Value: > 60.0; Range: >49; Status: F Test: SODIUM LEVEL; Value: 147; Range: 136-145; Abnormal: Above high normal; Units: MEQ/L; Status: F Test: POTASSIUM SERUM; Value: 4.4; Range: 3.5-5.1; Units: MEQ/L; Status: F Test: CHLORIDE LEVEL; Value: 113; Range: 98-107; Abnormal: Above high normal; Units: MEQ/L; Status: F Test: CARBON DIOXIDE LEVEL; Value: 25; Range: 21-32; Units: MEQ/L; Status: F Test: ANION GAP; Value: 9; Range: 8-16; Units: MEQ/L; Status: F Test: CALCIUM LEVEL; Value: 8.5; Range: 8.8-10.2; Abnormal: Below low normal; Units: MG/DL; Status: F Test Note: ; Units are mL/min/1.73 m2 Chronic Kidney Disease Staging per NKF: Stage I & II GFR >=60 Normal to Mildly Decreased Stage III GFR 30-59 Moderately Decreased Stage IV GFR 15-29 Severely Decreased Stage V GFR <15 Very Little GFR Left ESRD GFR <15 on CUSTOMER SERVICE DISPATCHER Lab Order: A1C; SPEC'M 04/11/16 14:03 Test: HEMOGLOBIN A1c; Value: 8.3; Range: 4.5-6.2; Abnormal: Above high normal; Units: %; Status: F Test: ESTIMATED AVERAGE GLUCOSE; Value: 192; Range: 60-110; Abnormal: Above high normal; Units: MG/DL; Status: F Lab Order: PROTHROMBIN TIME PROFILE\\E\\INR; SPEC'M 04/11/16 15:15 Test: PROTHROMBIN TIME; Value: 13.3; Range: 12.3-14.5; Units: SECONDS; Status: F Test: INR; Value: 1.00; Status: F Test Note: ; THERAPUTIC HUMAN INR VALUES INDICATIONS NORMAL RANGES PROPHYLAXIS/TREATMENT OF: VENOUS THROMBOSIS 2.0-3.0 PULMONARY EMBOLISM 2.0-3.0 PREVENTION OF SYSTEMIC EMBOLISM FROM: TISSUE HEART VALVES 2.0-3.0 ACUTE MYOCARDIAL INFARCTION 2.0-3.0 VALVULAR HEART DISEASE 2.0-3.0 ATRIAL FIBRILLATION 2.0-3.0 MECHANICAL VALVES(HIGH RISK) 2.5-3.5 RECURRENT MYOCARDIAL INFARCTION 2.5-3.5 Lab Order: SICKLE CELL SCREEN; [facility] 04/11/16 15:15 Test: SICKLE CELL SCREEN; Value: POSITIVE; Range: NEGATIVE; Status: F Test Note: ; WE SUGGEST ORDERING QUANTITATIVE HEMOGLOBIN ELECTROPHORESIS. Lab Order: ERYTHROCYTE SEDIMENTATION RATE; [facility] 04/11/16 15:15 Test: ERYTHROCYTE SEDIMENTATION RATE; Value: 11; Range: 0-20; Units: mm/hr; Status: F Lab Order: THYROID STIMULATING HORMONE; [facility] 04/11/16 15:15 Test: THYROID STIMULATING HORMONE; Value: 0.676; Range: 0.358-3.740; Units: uIU/ML; Status: F Lab Order: Fingerstick Blood Sugar; [facility] 04/11/16 16:57 Test: BEDSIDE GLUCOSE; Value: 168; Range: 80-115; Abnormal: Above high normal; Units: MG/DL; Status: F Lab Order: BASIC METABOLIC PROFILE; [facility] 04/12/16 07:24 Test: GLUCOSE, FASTING; Value: 100; Range: 80-110; Units: MG/DL; Status: F Test: BLOOD UREA NITROGEN; Value: 15; Range: 7-18; Units: MG/DL; Status: F Test: CREATININE FOR GFR; Value: 0.90; Range: 0.70-1.30; Units: MG/DL; Status: F Test: GLOMERULAR FILTRATION RATE; Value: > 60.0; Range: >49; Status: F Test: SODIUM LEVEL; Value: 143; Range: 136-145; Units: MEQ/L; Status: F Test: POTASSIUM SERUM; Value: 4.2; Range: 3.5-5.1; Units: MEQ/L; Status: F Test: CHLORIDE LEVEL; Value: 112; Range: 98-107; Abnormal: Above high normal; Units: MEQ/L; Status: F Test: CARBON DIOXIDE LEVEL; Value: 24; Range: 21-32; Units: MEQ/L; Status: F Test: ANION GAP; Value: 7; Range: 8-16; Abnormal: Below low normal; Units: MEQ/L; Status: F Test: CALCIUM LEVEL; Value: 8.5; Range: 8.8-10.2; Abnormal: Below low normal; Units: MG/DL; Status: F Test Note: ; Units are mL/min/1.73 m2 Chronic Kidney Disease Staging per NKF: Stage I & II GFR >=60 Normal to Mildly Decreased Stage III GFR 30-59 Moderately Decreased Stage IV GFR 15-29 Severely Decreased Stage V GFR <15 Very Little GFR Left ESRD GFR <15 on CUSTOMER SERVICE DISPATCHER Lab Order: COMPLETE BLOOD COUNT; SPEC'M 04/12/16 07:24 Test: WHITE BLOOD COUNT; Value: 5.1; Range: 4.0-10.0; Units: K/mm3; Status: F Test: RED BLOOD COUNT; Value: 4.19; Range: 4.30-6.10; Abnormal: Below low normal; Units: M/mm3; Status: F Test: HEMOGLOBIN; Value: 12.4; Range: 14.0-18.0; Abnormal: Below low normal; Units: g/dl; Status: F Test: HEMATOCRIT; Value: 35.9; Range: 42.0-52.0; Abnormal: Below low normal; Units: %; Status: F Test: MEAN CORPUSCULAR VOLUME; Value: 85.6; Range: 80.0-96.0; Units: fl; Status: F Test: MEAN CORPUSCULAR HEMOGLOBIN; Value: 29.5; Range: 27.0-33.0; Units: pg; Status: F Test: MEAN CORPUSCULAR HGB CONC; Value: 34.4; Range: 32.0-36.5; Units: g/dl; Status: F Test: RED CELL DISTRIBUTION WIDTH; Value: 13.3; Range: 11.5-14.5; Units: %; Status: F Test: PLATELET COUNT, AUTOMATED; Value: 171; Range: 150-450; Units: k/mm3; Status: F Lab Order: Fingerstick Blood Sugar; SPEC'04/11/16 22:55 Test: BEDSIDE GLUCOSE; Value: 152; Range: 80-115; Abnormal: Above high normal; Units: MG/DL; Status: F Lab Order: Fingerstick Blood Sugar; SPEC'M 04/12/16 11:28 Test: BEDSIDE GLUCOSE; Value: 90; Range: 80-115; Units: MG/DL; Status: F Radiology Order: EKG-ADULT Test: EKG-ADULT REASON FOR EXAMINATION: TIA; Stationary ECG Study; [facility] - ED; ; Test Date: 2016-04-11; Pat Name: SONYA MCCANN Department:; Room: -; Gender: M Family Law Specialist: cammy; : 1950 Requested By: Sancho Mohan; Order Number: [id number] Reading MD: Becky Young; Measurements; Intervals [place]; Rate: 83 P: 63; PA: 160 QRS: 0; QRSD: 90 T: 44; QT: 346; QTc: 408; Interpretive Statements; SINUS RHYTHM WITH SINUS ARRHYTHMIA; POSSIBLE RIGHT VENTRICULAR CONDUCTION DELAY; NSTTW ABNORMALITY; SIMILAR 01/15/16; Electronically Signed On 04-11-2016 20:27:34 EST by Becky Young; Radiology Order: Chest, 1 View Test: Chest, 1 View REASON FOR EXAMINATION: TIA; PORTABLE CHEST X-RAY: Sitting AP view.; ; HISTORY: TIA.; ; Comparison chest x-ray August 06, 2015.; ; FINDINGS: The lungs are symmetrically aerated and clear. The pleural angles are; sharp. Heart is not felt to be enlarged. The aorta is somewhat tortuous. There; are degenerative changes in the thoracic spine and in the acromioclavicular; joints. Pulmonary vasculature is not increased.; ; IMPRESSION: No active disease.; ; ; Signed by; Simon Peters MD 04/11/2016 03:01 P; Radiology Order: MRI Brain without Contrast Test: MRI Brain without Contrast REASON FOR EXAMINATION: tia; MR BRAIN WITHOUT CONTRAST:; ; HISTORY: TIA's.; ; COMPARISON: 01/15/2016; ; Areas of increased signal intensity on T2 weighted images are present in the; periventricular and subcortical white matter. This represents small vessel; ischemic disease. There is no intraparenchymal hemorrhage, infarct, mass or; midline shift. The ventricular system and cortical sulci are dilated consistent; with mild volume loss. There is no extracerebral collection. Mucosal thickening; is present in the sinuses.; ; IMPRESSION:1. Small vessel ischemic disease.; ; 3. Mild volume loss.; ; ; Signed by; Mendel Sanchez MD 04/11/2016 04:57 P; Radiology Order: MRA BRAIN W/O CONTRAST Test: MRA BRAIN W/O CONTRAST REASON FOR EXAMINATION: tia; MRA BRAIN WITHOUT CONTRAST:; ; HISTORY: TIA's; ; 3D [id number] MR angiography was performed at the level of the [place] of; [place].; ; There is no aneurysm or arteriovenous malformation. Mild atherosclerotic disease; involves the horizontal petrous segments and cavernous and supraclinoid internal; carotid arteries , A1 segment of the right anterior cerebral artery, left; middle cerebral artery trifurcation and basilar artery. The P1 segments of the; posterior cerebral arteries are hypoplastic. The major intracranial vessels are; patent. The vertebral arteries are equal in size.; ; IMPRESSION:; ; 1. There is no aneurysm or arteriovenous malformation.; ; 2. Atherosclerotic disease as described above.; ; ; Signed by; Mendel Sanchez MD 04/11/2016 04:56 P; Radiology Order: Duplex,carotid (complete) Test: Duplex,carotid (complete) REASON FOR EXAMINATION: tia; Duplex carotid sonography:; ; History: TIA.; ; Comparison study is from 01/14/2016.; ; Findings: Antegrade flow is observed in both vertebral arteries.; ; Right carotid: The right common carotid artery shows mild diffuse intimal; thickening. There is mild mixed plaquing in the bulb on the right side. Color; flow and spectral Doppler interrogation remain unremarkable on the right.; ; Right CCA/PSV 100 cm/S; ; Right ICA/PSV 62; ; EDV 10; ; Right ECA/PSV 67; ; Right ICA/CCA ratio normal 0.6.; ; Impression:; ; 0-15% category narrowing in the right ICA. Doppler velocities have not increased; since prior study.; ; Left carotid: The left common carotid artery shows mild diffuse intimal; thickening. There is minimal soft plaquing in the left carotid bulb on; two-dimensional scanning. Color flow and spectral Doppler interrogation remain; unremarkable.; ; Left CCA/PSV 98 cm/S; ; Left ICA/PSV 65; ; EDV 10; ; Left ECA/PSV 77; ; Left ICA/CCA ratio normal 0.7.; ; Impression:; ; 0-15% category narrowing in the left ICA by Doppler velocity criteria. Doppler; velocities have not increased significantly since the prior exam.; ; ; Signed by; Simon Peters MD 04/11/2016 05:02 P; Outcome: 14:40 Decision to Hospitalize by Provider. pc 18:44 MRI Study completed. mlb1 22:38 Discharge Assessment: Patient awake, alert and oriented x 3. No cognitive and/or cf2 functional deficits noted. Patient verbalized understanding of disposition instructions. Patient awake and alert. patient administered narcotics - no. The following High Risk Discharge criteria are identified: Yes, Admitted ER admission nurse. Condition: stable. Property :Personal belongings accompany Pt. 04/12 16:14 Patient left the ED. [facility] Signatures: Dispatcher [employer] EDMS Sancho Lugo MD MD pc Jobson, Karen RN KENY j Ashish Lowery RN RN mlb1 Jada Roper,RN RN kr3 Edson Verma, ATTIC BLOWER ATTIC BLOWER kb5 Nba Hooks, ATTIC BLOWER ATTIC BLOWER dd6 Yeni Dawson br3 Natali Ji, RN RN sls1 Alex, Donovan dem1 Josh Desai nq Katie, [place], ATTIC BLOWER ATTIC BLOWER tmm1 Ashish Paz,RN RN mb9 Ev Flores jp5 Nallely VasquezRN RN kas2 Bianca Moore,RN RN cf2 Reji Casper, ATTIC BLOWER ATTIC BLOWER jmv Paula Palmer RN ck1 Chart Complete MTDD
== END 2016-04-13 11:08 | disposition home or self-care (01) | DRG 123 ==
LOC: M ED 12:57 → M ED INP 14:55 → M MSPAV 04-12 16:50
PROVIDERS: ADMIT Internal Medicine; ATTEND Internal Medicine Nephrology
DX: G45.3 Amaurosis fugax (principal); G45.9 Transient cerebral ischemic attack, unspecified; E11.9 Type 2 diabetes mellitus without complications; E78.5 Hyperlipidemia, unspecified; K59.00 Constipation, unspecified; Z79.82 Long term (current) use of aspirin; Z79.899 Other long term (current) drug therapy; Z79.4 Long term (current) use of insulin; Z90.49 Acquired absence of other specified parts of digestive tract; Z87.891 Personal history of nicotine dependence; Z80.0 Family history of malignant neoplasm of digestive organs

== ENCOUNTER 2016-09-17 09:20 | Emergency (ER) | payer OTHER ==
[~2016-09-17] VITALS: Ht 175.3 cm; Wt 87.1 kg
[~2016-09-17 09:20] MED LIST changes: -ACET-654 PO; +ACET1TAB17 PO; +ASPI-156 PO; -ASPI-85 PO; +ASPI81TA24 PO; +DULC5TAB PO; +JANU50TA8 PO; -METF1000 PO; +METF10004 PO; +PLAV1TAB2 PO; +VOLT1GEL15 TOP
[2016-09-17] MEDS ORDERED: DIVA250T7 (09:47)
[2016-09-17] MEDS ORDERED: ACET1TAB17 PO (09:47)
[2016-09-17] MEDS ORDERED: LANTINJ4 SC (09:47)
[2016-09-17 10:05] LABS: BASO % 0.4 % (0.0-1.0); EOS # 0.2 K/mm3 (0.0-0.50); LARGE UNSTAINED CELL # 0.1 K/mm3 (0.0-0.4); LARGE UNSTAINED CELL % 1.6 % (0.0-4.0); LYMPH # 1.9 K/mm3 (1.5-4.5); LYMPH % 31.9 % (24.0-44.0); MEAN CORPUSCULAR HEMOGLOBIN 28.7 pg (27.0-33.0); MEAN CORPUSCULAR HGB CONC 33.5 g/dl (32.0-36.5); MEAN CORPUSCULAR VOLUME 85.7 fl (80.0-96.0); MONO # 0.3 K/mm3 (0.0-0.8); MONO % 6.1 % (0.0-5.0); NEUTROPHILS # 3.1 K/mm3 (1.8-7.7); NEUTROPHILS % 56.1 % (36.0-66.0); PLATELET COUNT, AUTOMATED 196 k/mm3 (150-450); RED CELL DISTRIBUTION WIDTH 13.6 % (11.5-14.5); WHITE BLOOD COUNT 5.6 K/mm3 (4.0-10.0)
[2016-09-17 10:11] LABS: INR 1.05
[2016-09-17 10:26] LABS: ALBUMIN 3.4 GM/DL (3.2-5.2); ALBUMIN/GLOBULIN RATIO 0.94 (1.00-1.93); ALKALINE PHOSPHATASE 81 U/L (45-117); ALT/SGPT 28 U/L (12-78); ANION GAP 8 MEQ/L (8-16); AST/SGOT 16 U/L (15-37); BILIRUBIN,DIRECT < 0.1 MG/DL (0.0-0.2); BILIRUBIN,TOTAL 0.3 MG/DL (0.2-1.0); BLOOD UREA NITROGEN 11 MG/DL (7-18); CALCIUM LEVEL 8.7 MG/DL (8.8-10.2); CARBON DIOXIDE LEVEL 23 MEQ/L (21-32); CHLORIDE LEVEL 110 MEQ/L (98-107); CREATININE FOR GFR 0.87 MG/DL (0.70-1.30); GLOMERULAR FILTRATION RATE > 60.0 (>49); GLUCOSE, FASTING 156 MG/DL (80-110); SODIUM LEVEL 141 MEQ/L (136-145)
--- NOTE | 2016-09-17 10:44 | REP ---
Clinical: Chest pain . Comparison: 04/11/2016 . Findings: The mediastinum and cardiac silhouette are stable and within normal limits for portable technique. The lung negrete are clear without acute consolidation, effusion, or pneumothorax. Skeletal structures are intact. Impression: No acute cardiopulmonary process appreciated. Signed by Miguel Dwyer MD 09/17/2016 10:35 A
[2016-09-17] MEDS ORDERED: MORPHINE 4 MG/ML 1ML SYRINGE IV ONE (11:00)
[2016-09-17] MEDS ORDERED: ONDANSETRON 4MG/2ML VIAL (J2405) IV ONE (11:00)
[2016-09-17] MEDS ORDERED: GI COCKTAIL 50ML BTL(HYOSCYAMINE/MAALOX/LIDOCAINE VISCOUS)(1:3:1) PO ONE (11:00)
[2016-09-17] MEDS ORDERED: PERC5TAB12 PO (11:15)
[2016-09-17 11:27] VITALS: BP 114/72
--- NOTE | 2016-09-19 07:15 | ECGEPIP ---
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
== END 2016-09-17 12:32 | disposition home or self-care (01) ==
LOC: M ED 10:06
DX: K86.1 Other chronic pancreatitis (principal); E11.9 Type 2 diabetes mellitus without complications; I10 Essential (primary) hypertension; D57.3 Sickle-cell trait; F17.210 Nicotine dependence, cigarettes, uncomplicated; Z79.82 Long term (current) use of aspirin; Z79.4 Long term (current) use of insulin; Z79.899 Other long term (current) drug therapy
CPT/HCPCS: 71010; 80048; 80076; 82550; 82553; 83690; 83880; 84443; 85025; 85610; 93005; 93041; 94760; 96374; 96375; 99285; J2405

== ENCOUNTER 2016-10-18 03:00 | Emergency (ER) | payer OTHER ==
[~2016-10-18] VITALS: Ht 175.3 cm; Wt 84.0 kg
[~2016-10-18 03:00] MED LIST changes: +DIVA250T7; +PERC5TAB12 PO
[2016-10-18] MEDS ORDERED: MORPHINE 10 MG/ML 1ML VIAL IV ONE (03:45)
[2016-10-18 03:55] LABS: BASO % 0.5 % (0.0-1.0); EOS # 0.2 K/mm3 (0.0-0.50); EOS % 2.7 % (0.0-3.0); LARGE UNSTAINED CELL # 0.2 K/mm3 (0.0-0.4); LARGE UNSTAINED CELL % 3.3 % (0.0-4.0); LYMPH % 27.6 % (24.0-44.0); MEAN CORPUSCULAR HEMOGLOBIN 29.3 pg (27.0-33.0); MEAN CORPUSCULAR HGB CONC 33.2 g/dl (32.0-36.5); MEAN CORPUSCULAR VOLUME 88.3 fl (80.0-96.0); MONO # 0.4 K/mm3 (0.0-0.8); MONO % 5.6 % (0.0-5.0); NEUTROPHILS # 3.9 K/mm3 (1.8-7.7); NEUTROPHILS % 60.4 % (36.0-66.0); PLATELET COUNT, AUTOMATED 194 k/mm3 (150-450); RETIC HEMOGLOBIN CONTENT CHr 32.1 PG (24-36); RETICULOCYTE ABSOLUTE ADVIA212 87 x10(9)/L (17-77); WHITE BLOOD COUNT 6.4 K/mm3 (4.0-10.0)
[2016-10-18 04:04] LABS: ALBUMIN 3.4 GM/DL (3.2-5.2); ALBUMIN/GLOBULIN RATIO 1.03 (1.00-1.93); ALKALINE PHOSPHATASE 80 U/L (45-117); ALT/SGPT 25 U/L (12-78); AMYLASE 64 U/L (25-115); ANION GAP 9 MEQ/L (8-16); AST/SGOT 13 U/L (15-37); BILIRUBIN,DIRECT < 0.1 MG/DL (0.0-0.2); BILIRUBIN,TOTAL 0.3 MG/DL (0.2-1.0); BLOOD UREA NITROGEN 12 MG/DL (7-18); CALCIUM LEVEL 8.3 MG/DL (8.8-10.2); CARBON DIOXIDE LEVEL 25 MEQ/L (21-32); CHLORIDE LEVEL 110 MEQ/L (98-107); CREATININE FOR GFR 0.91 MG/DL (0.70-1.30); GLOMERULAR FILTRATION RATE > 60.0 (>49); GLUCOSE, FASTING 159 MG/DL (80-110); POTASSIUM SERUM 3.9 MEQ/L (3.5-5.1); SODIUM LEVEL 144 MEQ/L (136-145); TOTAL PROTEIN 6.7 GM/DL (6.4-8.2)
[2016-10-18 04:37] LABS: SICKLE CELL SCREEN POSITIVE (NEGATIVE)
[2016-10-18] MEDS ORDERED: PANTOPRAZOLE 40MG INJ (PROTONIX) (C9113) IV ONE (05:15)
[2016-10-18] MEDS ORDERED: PROT1TAB2 PO (05:53)
[2016-10-18 05:56] VITALS: BP 126/77
--- NOTE | 2016-10-18 14:06 | ECGEPIP ---
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
== END 2016-10-18 06:05 | disposition home or self-care (01) ==
LOC: M ED 03:00
DX: K52.9 Noninfective gastroenteritis and colitis, unspecified (principal); I25.10 Atherosclerotic heart disease of native coronary artery without angina pectoris; E11.9 Type 2 diabetes mellitus without complications; I10 Essential (primary) hypertension; K85.90 Acute pancreatitis without necrosis or infection, unspecified; D57.1 Sickle-cell disease without crisis; Z87.891 Personal history of nicotine dependence; R94.31 Abnormal electrocardiogram [ECG] [EKG]; Z79.82 Long term (current) use of aspirin; Z79.4 Long term (current) use of insulin; Z79.899 Other long term (current) drug therapy
CPT/HCPCS: 80048; 80076; 82150; 82550; 82553; 83690; 85025; 85046; 85660; 93005; 96374; 96375; 99283; C9113

== ENCOUNTER 2017-04-07 18:42 | Emergency (ER) | payer OTHER ==
[2017-04-07] MEDS: NS 500 ML IV (19:15)
[2017-04-07 19:36] LABS: BASO % 0.6 % (0.0-1.0); EOS # 0.2 10^3/uL (0.0-0.50); EOS % 2.7 % (0.0-3.0); HEMATOCRIT 38.3 % (42.0-52.0); HEMOGLOBIN 13.3 g/dl (14.0-18.0); IMMATURE GRANULOCYTE % 0.3 % (0-0); LYMPH # 2.2 10^3/uL (1.5-4.5); LYMPH % 34.2 % (24.0-44.0); MEAN CORPUSCULAR HEMOGLOBIN 28.9 pg (27.0-33.0); MEAN CORPUSCULAR HGB CONC 34.7 g/dl (32.0-36.5); MEAN CORPUSCULAR VOLUME 83.1 fl (80.0-96.0); MONO # 0.6 10^3/uL (0.0-0.8); NEUTROPHILS # 3.4 10^3/uL (1.8-7.7); NEUTROPHILS % 53.2 % (36.0-66.0); PLATELET COUNT, AUTOMATED 230 10^3/uL (150-450); RED BLOOD COUNT 4.61 10^6/uL (4.30-6.10); RED CELL DISTRIBUTION WIDTH 13.1 % (11.5-14.5); WHITE BLOOD COUNT 6.3 10^3/uL (4.0-10.0)
[2017-04-07] MEDS: MORPHINE 4 MG/ML 1ML SYRINGE IV (19:45)
[2017-04-07 20:04] LABS: ALBUMIN 3.9 GM/DL (3.2-5.2); ALBUMIN/GLOBULIN RATIO 1.15 (1.00-1.93); ALKALINE PHOSPHATASE 95 U/L (45-117); ALT/SGPT 27 U/L (12-78); AMYLASE 82 U/L (25-115); ANION GAP 8 MEQ/L (8-16); AST/SGOT 15 U/L (7-37); BILIRUBIN,DIRECT 0.1 MG/DL (0.0-0.2); BILIRUBIN,TOTAL 0.3 MG/DL (0.2-1.0); BLOOD UREA NITROGEN 10 MG/DL (7-18); CARBON DIOXIDE LEVEL 25 MEQ/L (21-32); CHLORIDE LEVEL 108 MEQ/L (98-107); CREATININE FOR GFR 0.86 MG/DL (0.70-1.30); GLOMERULAR FILTRATION RATE > 60.0 (>49); GLUCOSE, FASTING 144 MG/DL (80-110); LIPASE 368 U/L (73-393); POTASSIUM SERUM 4.3 MEQ/L (3.5-5.1); SODIUM LEVEL 141 MEQ/L (136-145); TOTAL PROTEIN 7.3 GM/DL (6.4-8.2)
[2017-04-07 20:23] LABS: APPEARANCE, URINE CLEAR (CLEAR); BACTERIA, URINE AUTO NEGATIVE (NEGATIVE); BILIRUBIN, URINE AUTO NEGATIVE (NEGATIVE); BLOOD, URINE BLOOD 1+ (NEGATIVE); COLOR, URINE YELLOW (YELLOW); GLUCOSE, URINE (UA) AUTO NEGATIVE (NEGATIVE); KETONE, URINE AUTO NEGATIVE (NEGATIVE); LEUKOCYTE ESTERASE, URINE AUTO NEGATIVE (NEGATIVE); NITRITE, URINE AUTO NEGATIVE (NEGATIVE); PROTEIN, URINE AUTO NEGATIVE (NEGATIVE); RBC, URINE AUTO 4 /HPF (0-3); SQUAMOUS EPITHELIAL CELL UR AU 0 /HPF (0-6); UROBILINOGEN, URINE AUTO 0.2 mg/dL (0.0-2.0); WBC, URINE AUTO 3 /HPF (0-3)
[2017-04-07 20:32] LABS: CPK CREATINE PHOSPHOKINASE 81 U/L (39-308); MB/CK RELATIVE INDEX 1.23 (< OR =4)
[2017-04-07 20:33] LABS: TROPONIN I < 0.02 NG/ML (< 0.10)
[2017-04-07] MEDS: KETOROLAC 30 MG/ML VIAL (J1885) IV (20:45)
[2017-04-07] MEDS: GI COCKTAIL 50ML BTL(HYOSCYAMINE/MAALOX/LIDOCAINE VISCOUS)(1:3:1) PO (22:00)
== END 2017-04-07 22:11 | disposition home or self-care (01) ==
LOC: M ED 18:42
DX: R10.9 Unspecified abdominal pain (principal); K21.9 Gastro-esophageal reflux disease without esophagitis; E11.9 Type 2 diabetes mellitus without complications; I10 Essential (primary) hypertension; E78.5 Hyperlipidemia, unspecified; Z86.73 Personal history of transient ischemic attack (TIA), and cerebral infarction without residual deficits; Z79.82 Long term (current) use of aspirin; Z79.4 Long term (current) use of insulin; Z79.899 Other long term (current) drug therapy
CPT/HCPCS: J1885

== ENCOUNTER 2017-05-08 09:36 | Day surgery (SDC) | payer OTHER ==
[2017-05-08] MEDS: NS 1,000 ML IV ×2 (10:24)
[2017-05-08 10:28] LABS: BEDSIDE GLUCOSE 112 MG/DL (80-115)
[2017-05-08] MEDS ORDERED: PROPOFOL 200 MG/20 ML VIAL As Ordered ×2 (10:47)
[2017-05-08] MEDS ORDERED: LIDOCAINE 2% INJ 100 MG/5 ML SDV (FOR ANES.) As Ordered ×2 (10:47)
[2017-05-08] MEDS ORDERED: fentaNYL 100 MCG/2 ML INJECTION (J3010) As Ordered ×2 (10:48)
== END 2017-05-08 12:04 | disposition home or self-care (01) ==
LOC: M OPP 09:36
DX: Z12.11 Encounter for screening for malignant neoplasm of colon (principal); K57.30 Diverticulosis of large intestine without perforation or abscess without bleeding; K64.1 Second degree hemorrhoids; D12.3 Benign neoplasm of transverse colon; Z80.0 Family history of malignant neoplasm of digestive organs; R10.13 Epigastric pain; K44.9 Diaphragmatic hernia without obstruction or gangrene; K31.89 Other diseases of stomach and duodenum; K85.00 Idiopathic acute pancreatitis without necrosis or infection; I10 Essential (primary) hypertension; E11.9 Type 2 diabetes mellitus without complications; F17.210 Nicotine dependence, cigarettes, uncomplicated; Z79.4 Long term (current) use of insulin; Z79.82 Long term (current) use of aspirin; Z79.899 Other long term (current) drug therapy; Z88.8 Allergy status to other drugs, medicaments and biological substances; Z86.73 Personal history of transient ischemic attack (TIA), and cerebral infarction without residual deficits
CPT/HCPCS: 45385

== ENCOUNTER 2017-06-10 21:21 | Inpatient (IN) | payer OTHER ==
[2017-06-10 23:44] LABS: BASO % 0.4 % (0.0-1.0); EOS # 0.2 10^3/uL (0.0-0.50); EOS % 2.7 % (0.0-3.0); HEMATOCRIT 39.6 % (42.0-52.0); HEMOGLOBIN 13.6 g/dl (14.0-18.0); IMMATURE GRANULOCYTE % 0.6 % (0-3.0); LYMPH # 2.5 10^3/uL (1.5-4.5); LYMPH % 37.1 % (24.0-44.0); MEAN CORPUSCULAR HEMOGLOBIN 28.9 pg (27.0-33.0); MEAN CORPUSCULAR HGB CONC 34.3 g/dl (32.0-36.5); MEAN CORPUSCULAR VOLUME 84.3 fl (80.0-96.0); MONO # 0.6 10^3/uL (0.0-0.8); MONO % 9.2 % (0.0-5.0); NEUTROPHILS # 3.4 10^3/uL (1.8-7.7); PLATELET COUNT, AUTOMATED 240 10^3/uL (150-450); WHITE BLOOD COUNT 6.7 10^3/uL (4.0-10.0)
[2017-06-10] MEDS: ONDANSETRON 4MG/2ML VIAL (J2405) IV (23:44)
[2017-06-10] MEDS: NS 1,000 ML IV (23:44)
[2017-06-10] MEDS: MORPHINE 4 MG/ML 1ML VIAL (J2270) IV (23:45)
[2017-06-11 00:09] LABS: ALBUMIN 3.6 GM/DL (3.2-5.2); ALBUMIN/GLOBULIN RATIO 1.13 (1.00-1.93); ALKALINE PHOSPHATASE 96 U/L (45-117); ALT/SGPT 35 U/L (12-78); ANION GAP 7 MEQ/L (8-16); AST/SGOT 18 U/L (7-37); BILIRUBIN,TOTAL 0.2 MG/DL (0.2-1.0); BLOOD UREA NITROGEN 11 MG/DL (7-18); CALCIUM LEVEL 9.4 MG/DL (8.8-10.2); CARBON DIOXIDE LEVEL 25 MEQ/L (21-32); CHLORIDE LEVEL 110 MEQ/L (98-107); GLOMERULAR FILTRATION RATE > 60.0 (>49); GLUCOSE, FASTING 149 MG/DL (70-100); LIPASE 911 U/L (73-393); POTASSIUM SERUM 4.5 MEQ/L (3.5-5.1); SODIUM LEVEL 142 MEQ/L (136-145); TOTAL PROTEIN 6.8 GM/DL (6.4-8.2)
[2017-06-11] MEDS ORDERED: ISOVUE-370 76% 100ML VIAL (Q9967) As Ordered (00:16)
[2017-06-11] MEDS: MORPHINE 4 MG/ML 1ML VIAL (J2270) IV ×7 (01:53→22:41)
[2017-06-11] MEDS: NS 1,000 ML IV ×5 (02:18→21:34)
[2017-06-11] MEDS ORDERED: ONDANSETRON 4MG/2ML VIAL (J2405) IV (02:30)
[2017-06-11] MEDS ORDERED: DEXTROSE 50% 50 ML SYRINGE IV ×2 (02:30→08:00)
[2017-06-11] MEDS ORDERED: ACETAMINOPHEN TAB 650MG DOSE (2X325MG) PO (02:30)
[2017-06-11] MEDS ORDERED: GLUCOSE 4 GM CHEW TABLET PO ×2 (02:30→08:00)
[2017-06-11] MEDS ORDERED: PERCOCET 5MG/325MG TAB PO (02:30)
[2017-06-11] MEDS ORDERED: GLUCAGON FOR INJ 1 MG VIAL (J1610) SC ×2 (02:30→08:00)
[2017-06-11] MEDS: HumaLOG INSULIN (NovoLOG) PER UNIT SC ×4 (06:00→18:00)
[2017-06-11] MEDS ORDERED: MORPHINE 4 MG/ML 1ML VIAL (J2270) IV ×2 (07:45)
[2017-06-11 08:10] LABS: HEMATOCRIT 34.9 % (42.0-52.0); HEMOGLOBIN 11.7 g/dl (14.0-18.0); MEAN CORPUSCULAR HEMOGLOBIN 28.2 pg (27.0-33.0); MEAN CORPUSCULAR HGB CONC 33.5 g/dl (32.0-36.5); MEAN CORPUSCULAR VOLUME 84.1 fl (80.0-96.0); PLATELET COUNT, AUTOMATED 209 10^3/uL (150-450); RED BLOOD COUNT 4.15 10^6/uL (4.30-6.10); RED CELL DISTRIBUTION WIDTH 13.2 % (11.5-14.5); WHITE BLOOD COUNT 5.7 10^3/uL (4.0-10.0)
[2017-06-11] MEDS: PANTOPRAZOLE 40MG INJ (PROTONIX) (C9113) IV (08:35)
[2017-06-11] MEDS: CLOPIDOGREL 75 MG TAB PO (08:35)
[2017-06-11 09:45] LABS: ALBUMIN 3.2 GM/DL (3.2-5.2); ALBUMIN/GLOBULIN RATIO 1.19 (1.00-1.93); ALKALINE PHOSPHATASE 75 U/L (45-117); ALT/SGPT 30 U/L (12-78); ANION GAP 9 MEQ/L (8-16); AST/SGOT 19 U/L (7-37); BILIRUBIN,TOTAL 0.3 MG/DL (0.2-1.0); BLOOD UREA NITROGEN 11 MG/DL (7-18); CALCIUM LEVEL 8.3 MG/DL (8.8-10.2); CARBON DIOXIDE LEVEL 25 MEQ/L (21-32); CHLORIDE LEVEL 111 MEQ/L (98-107); CREATININE FOR GFR 0.82 MG/DL (0.70-1.30); GLOMERULAR FILTRATION RATE > 60.0 (>49); GLUCOSE, FASTING 84 MG/DL (70-100); LIPASE 830 U/L (73-393); POTASSIUM SERUM 3.8 MEQ/L (3.5-5.1); SODIUM LEVEL 145 MEQ/L (136-145); TOTAL PROTEIN 5.9 GM/DL (6.4-8.2)
[2017-06-11 18:23] LABS: BEDSIDE GLUCOSE 83 MG/DL (80-115)
[2017-06-11 19:27] LABS: HEMATOCRIT 33.5 % (42.0-52.0); HEMOGLOBIN 11.1 g/dl (14.0-18.0); MEAN CORPUSCULAR HEMOGLOBIN 28.3 pg (27.0-33.0); MEAN CORPUSCULAR HGB CONC 33.1 g/dl (32.0-36.5); MEAN CORPUSCULAR VOLUME 85.5 fl (80.0-96.0); PLATELET COUNT, AUTOMATED 192 10^3/uL (150-450); RED BLOOD COUNT 3.92 10^6/uL (4.30-6.10); RED CELL DISTRIBUTION WIDTH 13.2 % (11.5-14.5); WHITE BLOOD COUNT 5.1 10^3/uL (4.0-10.0)
[2017-06-11] MEDS ORDERED: SIMVASTATIN 20 MG TAB PO (21:00)
[2017-06-11] MEDS ORDERED: HumaLOG INSULIN (NovoLOG) PER UNIT SC (21:00)
[2017-06-11] MEDS: NORCO, ANEXSIA 5/325MG TABLET (HYDROcodone/ACETAMINOPHEN) PO (23:11)
[2017-06-12 00:18] LABS: BEDSIDE GLUCOSE 86 MG/DL (80-115)
[2017-06-12 01:23] LABS: HEMATOCRIT 30.8 % (42.0-52.0); HEMOGLOBIN 10.5 g/dl (14.0-18.0); MEAN CORPUSCULAR HGB CONC 34.1 g/dl (32.0-36.5); MEAN CORPUSCULAR VOLUME 85.1 fl (80.0-96.0); PLATELET COUNT, AUTOMATED 171 10^3/uL (150-450); RED BLOOD COUNT 3.62 10^6/uL (4.30-6.10); WHITE BLOOD COUNT 4.9 10^3/uL (4.0-10.0)
[2017-06-12] MEDS: MORPHINE 4 MG/ML 1ML VIAL (J2270) IV ×3 (02:12→17:12)
[2017-06-12] MEDS: NS 1,000 ML IV ×2 (02:12→06:28)
[2017-06-12] MEDS: NORCO, ANEXSIA 5/325MG TABLET (HYDROcodone/ACETAMINOPHEN) PO ×4 (04:28→21:44)
[2017-06-12] MEDS: HumaLOG INSULIN (NovoLOG) PER UNIT SC ×5 (06:00→21:39)
[2017-06-12 06:27] LABS: BEDSIDE GLUCOSE 91 MG/DL (80-115)
[2017-06-12 07:21] LABS: HEMATOCRIT 30.9 % (42.0-52.0); HEMOGLOBIN 10.4 g/dl (14.0-18.0); MEAN CORPUSCULAR HEMOGLOBIN 28.3 pg (27.0-33.0); MEAN CORPUSCULAR HGB CONC 33.7 g/dl (32.0-36.5); PLATELET COUNT, AUTOMATED 184 10^3/uL (150-450); RED BLOOD COUNT 3.68 10^6/uL (4.30-6.10); RED CELL DISTRIBUTION WIDTH 13.1 % (11.5-14.5); WHITE BLOOD COUNT 4.2 10^3/uL (4.0-10.0)
[2017-06-12 07:37] LABS: ALBUMIN 2.7 GM/DL (3.2-5.2); ALBUMIN/GLOBULIN RATIO 0.93 (1.00-1.93); ALKALINE PHOSPHATASE 66 U/L (45-117); ALT/SGPT 30 U/L (12-78); ANION GAP 7 MEQ/L (8-16); AST/SGOT 18 U/L (7-37); BILIRUBIN,TOTAL 0.2 MG/DL (0.2-1.0); BLOOD UREA NITROGEN 8 MG/DL (7-18); CALCIUM LEVEL 7.6 MG/DL (8.8-10.2); CARBON DIOXIDE LEVEL 24 MEQ/L (21-32); CHLORIDE LEVEL 116 MEQ/L (98-107); CREATININE FOR GFR 0.75 MG/DL (0.70-1.30); GLOMERULAR FILTRATION RATE > 60.0 (>49); GLUCOSE, FASTING 83 MG/DL (70-100); POTASSIUM SERUM 3.7 MEQ/L (3.5-5.1); SODIUM LEVEL 147 MEQ/L (136-145); TOTAL PROTEIN 5.6 GM/DL (6.4-8.2)
[2017-06-12] MEDS: PANTOPRAZOLE 40MG INJ (PROTONIX) (C9113) IV (08:28)
[2017-06-12] MEDS: BISACODYL 5 MG TAB PO (08:28)
[2017-06-12] MEDS: CLOPIDOGREL 75 MG TAB PO (08:29)
[2017-06-12] MEDS: ACETAMINOPHEN TAB 650MG DOSE (2X325MG) PO (11:25)
[2017-06-12 13:06] LABS: BEDSIDE GLUCOSE 312 MG/DL (80-115)
[2017-06-12 13:34] LABS: BEDSIDE GLUCOSE 150 MG/DL (80-115)
[2017-06-12] MEDS ORDERED: GLUCOSE 4 GM CHEW TABLET PO (16:00)
[2017-06-12] MEDS ORDERED: GLUCAGON FOR INJ 1 MG VIAL (J1610) SC (16:00)
[2017-06-12] MEDS ORDERED: DEXTROSE 50% 50 ML SYRINGE IV (16:00)
[2017-06-12 20:54] LABS: BEDSIDE GLUCOSE 251 MG/DL (80-115)
[2017-06-12 22:03] LABS: BEDSIDE GLUCOSE 261 MG/DL (80-115)
[2017-06-13] MEDS: MORPHINE 4 MG/ML 1ML VIAL (J2270) IV (00:16)
[2017-06-13] MEDS: NORCO, ANEXSIA 5/325MG TABLET (HYDROcodone/ACETAMINOPHEN) PO ×4 (02:33→23:02)
[2017-06-13 06:53] LABS: HEMOGLOBIN 10.8 g/dl (14.0-18.0); MEAN CORPUSCULAR HEMOGLOBIN 29.3 pg (27.0-33.0); MEAN CORPUSCULAR HGB CONC 34.8 g/dl (32.0-36.5); PLATELET COUNT, AUTOMATED 184 10^3/uL (150-450); RED BLOOD COUNT 3.69 10^6/uL (4.30-6.10); RED CELL DISTRIBUTION WIDTH 13.1 % (11.5-14.5); WHITE BLOOD COUNT 4.7 10^3/uL (4.0-10.0)
[2017-06-13 07:23] LABS: ALBUMIN/GLOBULIN RATIO 0.94 (1.00-1.93); ALKALINE PHOSPHATASE 82 U/L (45-117); ALT/SGPT 62 U/L (12-78); ANION GAP 7 MEQ/L (8-16); AST/SGOT 29 U/L (7-37); BILIRUBIN,TOTAL 0.2 MG/DL (0.2-1.0); BLOOD UREA NITROGEN 12 MG/DL (7-18); CALCIUM LEVEL 7.9 MG/DL (8.8-10.2); CARBON DIOXIDE LEVEL 23 MEQ/L (21-32); CHLORIDE LEVEL 111 MEQ/L (98-107); GLOMERULAR FILTRATION RATE > 60.0 (>49); GLUCOSE, FASTING 249 MG/DL (70-100); LIPASE 208 U/L (73-393); POTASSIUM SERUM 3.9 MEQ/L (3.5-5.1); SODIUM LEVEL 141 MEQ/L (136-145); TOTAL PROTEIN 6.2 GM/DL (6.4-8.2)
[2017-06-13] MEDS: PANTOPRAZOLE 40MG INJ (PROTONIX) (C9113) IV (07:59)
[2017-06-13] MEDS: CLOPIDOGREL 75 MG TAB PO (07:59)
[2017-06-13] MEDS: HumaLOG INSULIN (NovoLOG) PER UNIT SC ×4 (07:59→21:00)
[2017-06-13] MEDS: DOCUSATE SODIUM 100 MG CAP PO ×2 (12:03→20:30)
[2017-06-13 12:11] LABS: BEDSIDE GLUCOSE 139 MG/DL (80-115)
[2017-06-13 15:52] LABS: BEDSIDE GLUCOSE 281 MG/DL (80-115)
[2017-06-13 17:22] LABS: BEDSIDE GLUCOSE 277 MG/DL (80-115)
[2017-06-13 20:44] LABS: BEDSIDE GLUCOSE 242 MG/DL (80-115)
[2017-06-13] MEDS: BISACODYL 5 MG TAB PO (22:58)
[2017-06-14] MEDS: NORCO, ANEXSIA 5/325MG TABLET (HYDROcodone/ACETAMINOPHEN) PO ×3 (06:55→22:31)
[2017-06-14] MEDS ORDERED: MOM 30ML SUSPENSION UDC PO (07:00)
[2017-06-14 07:47] LABS: HEMATOCRIT 31.5 % (42.0-52.0); HEMOGLOBIN 10.8 g/dl (14.0-18.0); MEAN CORPUSCULAR HEMOGLOBIN 28.6 pg (27.0-33.0); MEAN CORPUSCULAR HGB CONC 34.3 g/dl (32.0-36.5); MEAN CORPUSCULAR VOLUME 83.3 fl (80.0-96.0); PLATELET COUNT, AUTOMATED 196 10^3/uL (150-450); RED BLOOD COUNT 3.78 10^6/uL (4.30-6.10); RED CELL DISTRIBUTION WIDTH 13.1 % (11.5-14.5); WHITE BLOOD COUNT 5.3 10^3/uL (4.0-10.0)
[2017-06-14 08:20] LABS: ALKALINE PHOSPHATASE 74 U/L (45-117); ALT/SGPT 50 U/L (12-78); ANION GAP 7 MEQ/L (8-16); AST/SGOT 19 U/L (7-37); BILIRUBIN,TOTAL 0.3 MG/DL (0.2-1.0); BLOOD UREA NITROGEN 11 MG/DL (7-18); CARBON DIOXIDE LEVEL 22 MEQ/L (21-32); CHLORIDE LEVEL 113 MEQ/L (98-107); CREATININE FOR GFR 0.86 MG/DL (0.70-1.30); GLOMERULAR FILTRATION RATE > 60.0 (>49); GLUCOSE, FASTING 225 MG/DL (70-100); LIPASE 171 U/L (73-393); SODIUM LEVEL 142 MEQ/L (136-145)
[2017-06-14] MEDS: PANTOPRAZOLE 40MG INJ (PROTONIX) (C9113) IV (08:29)
[2017-06-14] MEDS: MIRALAX *UNIT DOSE* 17GM PACKET PO (08:29)
[2017-06-14] MEDS: HumaLOG INSULIN (NovoLOG) PER UNIT SC ×4 (08:30→22:29)
[2017-06-14] MEDS: DOCUSATE SODIUM 100 MG CAP PO ×2 (08:30→22:28)
[2017-06-14] MEDS: CLOPIDOGREL 75 MG TAB PO (08:30)
[2017-06-14 11:46] LABS: BEDSIDE GLUCOSE 303 MG/DL (80-115)
[2017-06-14 13:14] LABS: SICKLE CELL SCREEN NEGATIVE (NEGATIVE)
[2017-06-14 18:22] LABS: BEDSIDE GLUCOSE 175 MG/DL (80-115)
[2017-06-14 21:19] LABS: BEDSIDE GLUCOSE 442 MG/DL (80-115)
[2017-06-14 22:16] LABS: BEDSIDE GLUCOSE 425 MG/DL (80-115)
[2017-06-14] MEDS: BISACODYL 5 MG TAB PO (22:53)
[2017-06-15] MEDS: MORPHINE 4 MG/ML 1ML VIAL (J2270) IV (00:06)
[2017-06-15] MEDS: NORCO, ANEXSIA 5/325MG TABLET (HYDROcodone/ACETAMINOPHEN) PO ×2 (02:09→06:54)
[2017-06-15 07:53] LABS: HEMATOCRIT 33.3 % (42.0-52.0); HEMOGLOBIN 11.3 g/dl (13.5-17.5); MEAN CORPUSCULAR HEMOGLOBIN 27.9 pg (27.0-33.0); MEAN CORPUSCULAR HGB CONC 33.9 g/dl (32.0-36.5); MEAN CORPUSCULAR VOLUME 82.2 fl (80.0-96.0); PLATELET COUNT, AUTOMATED 204 10^3/uL (150-450); RED BLOOD COUNT 4.05 10^6/uL (4.30-6.10); RED CELL DISTRIBUTION WIDTH 13.1 % (11.5-14.5)
[2017-06-15 08:17] LABS: ALBUMIN 3.3 GM/DL (3.2-5.2); ALKALINE PHOSPHATASE 87 U/L (45-117); ALT/SGPT 56 U/L (12-78); ANION GAP 5 MEQ/L (8-16); AST/SGOT 23 U/L (7-37); BILIRUBIN,TOTAL 0.2 MG/DL (0.2-1.0); BLOOD UREA NITROGEN 10 MG/DL (7-18); CALCIUM LEVEL 8.5 MG/DL (8.8-10.2); CARBON DIOXIDE LEVEL 25 MEQ/L (21-32); CHLORIDE LEVEL 112 MEQ/L (98-107); CREATININE FOR GFR 0.91 MG/DL (0.70-1.30); GLOMERULAR FILTRATION RATE > 60.0 (>49); GLUCOSE, FASTING 192 MG/DL (70-100); LIPASE 206 U/L (73-393); POTASSIUM SERUM 4.1 MEQ/L (3.5-5.1); SODIUM LEVEL 142 MEQ/L (136-145); TOTAL PROTEIN 6.6 GM/DL (6.4-8.2)
[2017-06-15] MEDS: DOCUSATE SODIUM 100 MG CAP PO (09:06)
[2017-06-15] MEDS: HumaLOG INSULIN (NovoLOG) PER UNIT SC (09:06)
[2017-06-15] MEDS: CLOPIDOGREL 75 MG TAB PO (09:06)
[2017-06-15] MEDS: PANTOPRAZOLE 40MG INJ (PROTONIX) (C9113) IV (09:06)
[2017-06-15] MEDS: MIRALAX *UNIT DOSE* 17GM PACKET PO (09:06)
== END 2017-06-15 11:32 | disposition home or self-care (01) | DRG 439 ==
LOC: M ED INP 06-11 02:18 → M ED 21:21 → M PED 06-11 13:05
DX: K85.90 Acute pancreatitis without necrosis or infection, unspecified (principal); G45.3 Amaurosis fugax; Z79.82 Long term (current) use of aspirin; Z79.899 Other long term (current) drug therapy; Z79.4 Long term (current) use of insulin; E11.9 Type 2 diabetes mellitus without complications; I10 Essential (primary) hypertension; Z86.73 Personal history of transient ischemic attack (TIA), and cerebral infarction without residual deficits; K86.1 Other chronic pancreatitis; E78.5 Hyperlipidemia, unspecified

== ENCOUNTER → 2017-06-22 | Outpatient (CLI) | payer MEDICARE, OTHER ==
[~2017-06-22] MED LIST changes: -ACET1TAB17 PO; -ACET65TA; -ASPI-156 PO; -ASPI81CH PO; -ASPI81TA24 PO; -ASPI81TA63; -BABY81CH; -BYDU1INJ SC; -CALCCHW12; -CITR1SOL PO; -DIVA250T7; -DULC10SU2 PR; -DULC5TAB PO; -FISH300C2; -GLUC1000; -GLYB5TA PO; -INSULANT SC; -JANU50TA8 PO; -LANTINJ4 SC; -LISI-542 PO; -LISI5TAB; -METF10004 PO; -MILKSUS PO; -MIRA33504 PO; -OXYC10TA56; -PERC5TAB12 PO; -PERC5TAB8; -PERC7.5T8; -PERCOCET PO; -PLAV1TAB2 PO; +PROHANCE 279.3MG/ML 15ML VIAL (A9576) As Ordered; +PROHANCE 279.3MG/ML 5ML VIAL (A9576) As Ordered; -SIMV20TA2 PO; -SITAGLIPTIN; -VITA250C; -VOLT1GEL15 TOP; -ZINC220T2; -[UNRECOGNIZED DRUG - OTHER]
== END ==
LOC: M RAD 18:02
DX: K86.1 Other chronic pancreatitis (principal)
CPT/HCPCS: A9576

== ENCOUNTER 2020-07-11 01:30 | Emergency (ER) | payer MEDICARE, OTHER ==
[~2020-07-11] VITALS: Ht 175.3 cm; Wt 80.0 kg
[~2020-07-11 01:30] MED LIST changes: +ACET1TAB55 PO; +ACET65TA; +ASPI81CH49 PO; +ASPI81TA24 PO; +ASPI81TA28 PO; +ASPI81TA63; +BABY81CH; +BYDU1INJ SC; +CALCCHW12; +CITR1SOL PO; +COLA100C5 PO; +DIVA250T7; +DULC10SU2 PR; +DULC5TAB PO; +FISH300C2; +GLUC1000; +GLYB-147 PO; +GLYB5TAB6 PO; +HYDR-3715 PO; +INSULANT SC; +JANU50TA8 PO; +LANTINJ4 SC; +LISI-898 PO; +LISI5TAB; +METF10004 PO; +MILK120011 PO; +MIRA33504 PO; +NORC1TAB7 PO; +OXYC10TA56; +OXYC1TAB23 PO; +PERC5TAB12 PO; +PERC5TAB8; +PERC7.5T8; +PERCOCET PO; +PLAV1TAB2 PO; -PROHANCE 279.3MG/ML 15ML VIAL (A9576) As Ordered; -PROHANCE 279.3MG/ML 5ML VIAL (A9576) As Ordered; +PROT1TAB2 PO; +SIMV20TA22 PO; +SITAGLIPTIN; +VITA250C; +VOLT1GEL15 TOP; +ZINC220T2; +[UNRECOGNIZED DRUG - OTHER]
[2020-07-11] MEDS ORDERED: TRES1INJ2 SC (01:45)
[2020-07-11] MEDS ORDERED: NOVOINJ3 SC (01:45)
[2020-07-11 02:19] LABS: BASO # 0.1 10^3/uL (0.0-0.2); BASO % 0.6 % (0.0-1.0); EOS # 0.3 10^3/uL (0.0-0.5); EOS % 3.2 % (0.0-3.0); HEMATOCRIT 41.5 % (42.0-52.0); LYMPH % 24.7 % (24.0-44.0); MEAN CORPUSCULAR HEMOGLOBIN 29.7 pg (27.0-33.0); MEAN CORPUSCULAR HGB CONC 33.7 g/dl (32.0-36.5); MEAN CORPUSCULAR VOLUME 88.1 fl (80.0-96.0); MONO # 0.8 10^3/uL (0.0-0.8); MONO % 10.6 % (2.0-8.0); NEUTROPHILS # 4.8 10^3/uL (1.5-8.5); NEUTROPHILS % 60.3 % (36.0-66.0); PLATELET COUNT, AUTOMATED 201 10^3/uL (150-450); RED BLOOD COUNT 4.71 10^6/uL (4.30-6.10); WHITE BLOOD COUNT 7.9 10^3/uL (4.0-10.0)
--- NOTE | 2020-07-11 02:46 | REPVR ---
PROCEDURE INFORMATION: Exam: XR Complete Acute Abdomen Series Exam date and time: 07/11/20 (2:08am) Age: 69 years old Clinical indication: Abdominal pain TECHNIQUE: Imaging protocol: XR complete acute abdomen series, including 2 or more views of the abdomen and a single view chest COMPARISON: MRI ABDOMEN of 06/22/17 FINDINGS: Lungs: Normal. No consolidation. Pleural spaces: Normal. No pleural effusions. No pneumothorax. Heart/Mediastinum: Normal. No cardiomegaly. Gastrointestinal tract: No bowel dilatation. [id number] amount of fecal matter in the colon. Intraperitoneal space: Normal. No free air. Other findings: S/P cholecystectomy. Bones/joints: Normal. No acute fracture. Soft tissues: Normal. IMPRESSION: No acute findings. S/P cholecystectomy. Electronically signed by: Ying Larson On 07/11/2020 02:46:05 AM
[2020-07-11 02:59] LABS: ALBUMIN 3.7 GM/DL (3.2-5.2); ALT/SGPT 23 U/L (12-78); BILIRUBIN,DIRECT < 0.1 MG/DL (0.0-0.2); BILIRUBIN,TOTAL 0.3 MG/DL (0.2-1.0); BLOOD UREA NITROGEN 20 MG/DL (7-18); CALCIUM LEVEL 8.7 MG/DL (8.8-10.2); CARBON DIOXIDE LEVEL 22 MEQ/L (21-32); CHLORIDE LEVEL 112 MEQ/L (98-107); CREATININE FOR GFR 1.16 MG/DL (0.70-1.30); GLOMERULAR FILTRATION RATE > 60.0 (>49); GLUCOSE, FASTING 162 MG/DL (70-100); LIPASE 874 U/L (73-393); POTASSIUM SERUM 4.2 MEQ/L (3.5-5.1); SODIUM LEVEL 141 MEQ/L (136-145); TOTAL PROTEIN 7.1 GM/DL (6.4-8.2)
[2020-07-11] MEDS: GASTROGRAFIN SOLUTION 30ML PO SCH ×2 (04:12→04:43)
[2020-07-11] MEDS ORDERED: ISOVUE-370 76% 100ML VIAL As Ordered ONE (05:30)
[2020-07-11] MEDS ORDERED: QC F0.52 PO (05:43)
[2020-07-11] MEDS ORDERED: MIRA3350 PO (05:43)
[2020-07-11] MEDS ORDERED: SENN-80 PO (05:43)
--- NOTE | 2020-07-11 06:06 | REPVR ---
PROCEDURE INFORMATION: Exam: CT Abdomen and Pelvis with Contrast Exam date and time: 07/11/20 (5:40am) Age: 69 years old Clinical indication: LLQ pain. Abdominal distention. Paucity of bowel flatus passed. TECHNIQUE: Imaging protocol: Computed tomography of the abdomen and pelvis with contrast. Radiation optimization: All CT scans at this facility use at least one of these dose optimization techniques: automated exposure control; mA and/or kV adjustment per patient size (includes targeted exams where dose is matched to clinical indication); or iterative reconstruction. Contrast material: Isovue 370 Contrast volume: 100 ml Contrast route: IV COMPARISON: CT ABDOMEN PELVIS of 06/11/17 FINDINGS: Liver: Normal. No solid mass. Gallbladder and bile ducts: S/P cholecystectomy. No ductal dilatation. Pancreas: Normal. No ductal dilatation. Spleen: Normal. No splenomegaly. Adrenal glands: Normal. No mass. Kidneys and ureters: Normal. No hydronephrosis. Stomach and bowel: Unremarkable. No bowel obstruction. No mucosal thickening. Appendix: A long, normal appendix is visualized. Intraperitoneal space: Unremarkable. No free air. No significant fluid collection. Vasculature: Unremarkable. No abdominal aortic aneurysm. Lymph nodes: Unremarkable. No enlarged lymph nodes. Urinary bladder: Unremarkable as visualized. Reproductive: Unremarkable as visualized. Bones/joints: No acute fracture. Multilevel degenerative lumbar spine changes. Vacuum disc phenomenon at the L4-L5 level. Soft tissues: Unremarkable. IMPRESSION: No acute findings. S/P cholecystectomy. No acute bowel pathology. No significant LLQ pathology. Electronically signed by: Ying Larson On 07/11/2020 06:05:44 AM
[2020-07-11] MEDS ORDERED: SENNA 8.6 MG TAB (SENOKOT) PO STA (06:40)
[2020-07-11 07:08] VITALS: BP 136/84
== END 2020-07-11 07:24 | disposition home or self-care (01) ==
LOC: M ED 01:30
DX: K59.00 Constipation, unspecified (principal); E11.9 Type 2 diabetes mellitus without complications; Z79.4 Long term (current) use of insulin; Z79.82 Long term (current) use of aspirin; Z79.899 Other long term (current) drug therapy; Z88.8 Allergy status to other drugs, medicaments and biological substances
CPT/HCPCS: 36415; 74021; 74177; 80048; 80076; 81001; 83605; 83690; 85025; 99284; Q9963; Q9967

== ENCOUNTER 2020-07-16 13:51 | Emergency (ER) | payer MEDICARE, OTHER ==
[~2020-07-16] VITALS: Ht 175.3 cm; Wt 83.2 kg
[~2020-07-16 13:51] MED LIST changes: +MIRA3350 PO; +NOVOINJ3 SC; +QC F0.52 PO; +SENN-80 PO; +TRES1INJ2 SC
[2020-07-16 15:40] LABS: BASO # 0.1 10^3/uL (0.0-0.2); BASO % 0.7 % (0.0-1.0); EOS # 0.3 10^3/uL (0.0-0.5); EOS % 3.6 % (0.0-3.0); HEMATOCRIT 42.5 % (42.0-52.0); HEMOGLOBIN 14.2 g/dl (13.5-17.5); LYMPH % 28.3 % (24.0-44.0); MEAN CORPUSCULAR HEMOGLOBIN 29.6 pg (27.0-33.0); MEAN CORPUSCULAR HGB CONC 33.4 g/dl (32.0-36.5); MEAN CORPUSCULAR VOLUME 88.5 fl (80.0-96.0); MONO # 0.6 10^3/uL (0.0-0.8); MONO % 7.7 % (2.0-8.0); NEUTROPHILS # 4.2 10^3/uL (1.5-8.5); NEUTROPHILS % 59.3 % (36.0-66.0); PLATELET COUNT, AUTOMATED 240 10^3/uL (150-450); WHITE BLOOD COUNT 7.1 10^3/uL (4.0-10.0)
[2020-07-16 15:45] LABS: ALBUMIN 3.9 GM/DL (3.2-5.2); ALT/SGPT 20 U/L (12-78); BILIRUBIN,DIRECT 0.1 MG/DL (0.0-0.2); BILIRUBIN,TOTAL 0.4 MG/DL (0.2-1.0); BLOOD UREA NITROGEN 10 MG/DL (7-18); CALCIUM LEVEL 9.2 MG/DL (8.8-10.2); CARBON DIOXIDE LEVEL 25 MEQ/L (21-32); CHLORIDE LEVEL 106 MEQ/L (98-107); CREATININE FOR GFR 1.16 MG/DL (0.70-1.30); GLOMERULAR FILTRATION RATE > 60.0 (>49); GLUCOSE, FASTING 171 MG/DL (70-100); LIPASE 629 U/L (73-393); POTASSIUM SERUM 4.6 MEQ/L (3.5-5.1); SODIUM LEVEL 138 MEQ/L (136-145); TOTAL PROTEIN 7.4 GM/DL (6.4-8.2)
[2020-07-16] MEDS ORDERED: ACETAMINOPHEN 325 MG TAB PO ONE (16:05)
--- NOTE | 2020-07-16 16:34 | REP ---
INDICATION: Abdominal pain. COMPARISON: Comparison radiographs July 11, 2020.. TECHNIQUE: KUB: Two views provided. FINDINGS: There is air and stool in a nondistended colon proximally and distally. No large or small bowel dilation is seen. Psoas margins are symmetric. There are clips in right upper quadrant consistent with previous cholecystectomy. Flank stripes are intact. No mass, organomegaly, or pathologic calcification is seen. IMPRESSION: Clips in the right upper quadrant. Normal bowel gas pattern. <Electronically signed by Ck Peters > 07/16/20 2200
[2020-07-16] MEDS ORDERED: GLYCERIN ADULT SUPP PR ONE (16:55)
[2020-07-16] MEDS ORDERED: MAGNESIUM CITRATE 300 ML BTL PO ONE (18:55)
[2020-07-16] MEDS ORDERED: FLEET OIL RETENTION ENEMA PR PRN (20:10)
[2020-07-16] MEDS ORDERED: ISOVUE-370 76% 100ML VIAL As Ordered ONE (22:50)
[2020-07-16] MEDS ORDERED: RA M1.74 PO ×2 (23:32→23:42)
[2020-07-16] MEDS ORDERED: FLEEENE12 PR ×2 (23:32→23:42)
[2020-07-16 23:42] VITALS: BP 150/88
[2020-07-18] MEDS ORDERED: SULF1TAB23 PO (10:33)
== END 2020-07-16 23:58 | disposition home or self-care (01) ==
LOC: M ED 13:51
DX: K59.00 Constipation, unspecified (principal); I10 Essential (primary) hypertension; E10.9 Type 1 diabetes mellitus without complications; E78.5 Hyperlipidemia, unspecified; D57.3 Sickle-cell trait; G45.9 Transient cerebral ischemic attack, unspecified; Z79.82 Long term (current) use of aspirin; Z79.899 Other long term (current) drug therapy